=== PATIENT | male | born 1960 | race African-American/Black ===

== ENCOUNTER 2019-02-07 13:44 | Inpatient (IN) | payer OTHER ==
[2019-02-07 17:00] VITALS: BMI 33.2
--- NOTE | 2019-02-07 18:37 | HP ---
CIWA Score Nausea/Vomitin Muscle Tremors: 3 Anxiety: 3 Agitation: 0-Normal Activity Paroxysmal Sweats: 2 Orientation: 0-Oriented Tacttile Disturbances: 0-None Auditory Disturbances: 0-None Visual Disturbances: 0-None Headache: 0-None Present CIWA-Ar Total Score: 13 - Admission Criteria OASAS Guidelines: Admission for Medically Managed Detox: Requires at least one of the followin. CIWA greater than 12 2. Seizures within the past 24 hours 3. Delirium tremens within the past 24 hours 4. Hallucinations within the past 24 hours 5. Acute intervention needed for co occurring medical disorder 6. Acute intervention needed for co occurring psychiatric disorder 7. Severe withdrawal that cannot be handled at a lower level of care (continued vomiting, continued diarrhea, abnormal vital signs) requiring intravenous medication and/or fluids 8. Admission [facility] Chief Complaint: detox from cocaine and EtOH Allergies/Adverse Reactions: Allergies Allergy/AdvReac Type Severity Reaction Status Date / Time No Known Allergies Allergy Verified 02/07/19 16:45 History of Present Illness: 58M w/ pmh of CKD(s/p DDKT 2009 [facility]), HTN, IDDM, chronic lower back pain( oxycodone 15mg QID PRN) presenting for EtOH, cocaine detox. Cocaine $150-200, 2- 3x weekly for 1.5ys. Drinks 22oz beer x12 everyday, starts in the morning. Drinking regularly for ~1.5ys after losing job and injuring back. Last drink at ~1500. Gets tremors at 12pm. Blacked out 5-6x, last 1mo ago. Denies withdrawal seizures. Denies cirrhosis, jaundice, scleral icterus, hematemesis, hematachezia. Distant tobacco(~35yo). Compliant with transplant medications, Cr ~1.3. Sees chronic pain clinic for lower back pain. Plans to have L-spine surgery at [facility]. Lives alone. 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 - Ebola screening Have you traveled outside of the country in the last 21 days: No (N) Have you had contact with anyone from an Ebola affected area: No Do you have a fever: No - Review of Systems EENT: denies: Recent change in vision Respiratory: denies: Cough, Productive cough Cardiac: denies: Chest Pain, Palpitations GI: reports: Nausea. denies: Diarrhea, Vomiting : denies: Discharge, Pain, Urgency Musculoskeletal: reports: Back Pain (lower back pain) Neuro: reports: Headache, Other (numbness in feet) Patient History - Patient Medical History Hx Anemia: No Hx Asthma: No Hx Chronic Obstructive Pulmonary Disease (COPD): No Hx Cancer: No Hx Cardiac Disorders: No Hx Congestive Heart Failure: No Hx Hypertension: Yes Hx Hypercholesterolemia: No Hx Pacemaker: No HX Cerebrovascular Accident: No Hx Seizures: No Hx Dementia: No Hx Diabetes: Yes Hx Gastrointestinal Disorders: No Hx Liver Disease: No Hx Genitourinary Disorders: No Hx Sexually Transmitted Disorders: No Hx Renal Disease (ESRD): Yes (s/p DDKT(2009, [facility])) Hx Thyroid Disease: No Hx Human Immunodeficiency Virus (HIV): No Hx Hepatitis C: No Hx Depression: No Hx Suicide Attempt: No Hx Bipolar Disorder: No Hx Schizophrenia: No - Patient Surgical History Past Surgical History: Yes Hx Neurologic Surgery: No Hx Cataract Extraction: No Hx Cardiac Surgery: No Hx Lung Surgery: No Hx Abdominal Surgery: No Hx Appendectomy: No Hx Cholecystectomy: No Hx Genitourinary Surgery: No Hx Section: No Hx Orthopedic Surgery: No Other Surgical History: DDKT 2009 at [facility] - Smoking Cessation Smoking history: Never smoked Have you smoked in the past 12 months: No - Substance & Tx. History Hx Alcohol Use: Yes Hx Substance Use: Yes Substance Use Type: Alcohol, Heroin - Substances abused Alcohol Substance route: Oral Frequency: Daily Amount used: 12 CANS OF BEER (22 OUNCES) Age of first use: 14 Date of last use: 02/07/19 Cocaine Substance route: Smoking Frequency: 3-6 times per week Amount used: $200 Age of first use: 18 Date of last use: 02/06/19 Family Disease History - Family Disease History Other Family History: no HTN, DM, Ca Admission Physical Exam BHS - Vital Signs Vital Signs: Vital Signs - 24 hr 02/07/19 16:42 Temperature 97.3 F L Pulse Rate 69 Respiratory 20 Rate Blood Pressure 142/96 - Physical General Appearance: Yes: No Apparent Distress, Obese HEENTM: Yes: Pale Conjunctivae L. No: Pale Conjunctivae R, Scleral Ictenus R, Scleral Ictenus L, Thrush Respiratory: Yes: Chest Non-Tender, Lungs Clear, No Respiratory Distress, No Accessory Muscle Use. No: Wheezing Neck: No: Supple Cardiology: Yes: Regular Rate, S1, S2. No: Irregularly Irregular Abdominal: Yes: Non Tender, Soft. No: Distended Genitourinary: No: Frequency Back: Yes: Muscle Spasm Extremities: Yes: Other (RUE with incision scars). No: Non-Tender, Swelling Neurological: Yes: Fully Oriented, Alert Breathalyzer - Breathalyzer Breathalyzer: 0.018 Urine Drug Screen - Test Device Lot number: [id number] Expiration date: 10/26/20 - Control Is test valid?: Yes - Results Drug screen NEGATIVE: No Urine drug screen results: ADELSO-Cocaine, BZO-Benzodiazepines Inpatient Rehab Admission - Rehab Decision to Admit Inpatient rehab admission?: No
--- NOTE | 2019-02-07 18:56 | PN ---
Teaching Attending Note Name of Resident: Juan J Plaza ATTENDING PHYSICIAN STATEMENT I saw and evaluated the patient. I reviewed the resident's note and discussed the case with the resident. I agree with the resident's findings and plan as documented. SUBJECTIVE: 58 yo s/p kidney transplant about 9 years ago, here for alcohol use and cocaine use disorders. Pt states he relapsed to using alcohol in 04/2018. OBJECTIVE: Vital Signs - 24 hr 02/07/19 16:42 Temperature 97.3 F L Pulse Rate 69 Respiratory 20 Rate Blood Pressure 142/96 tremulous ASSESSMENT AND PLAN: AUD- librium detox protocol continue meds related to kidney transplant
[2019-02-07] MEDS ORDERED: MENTHOL/PHENOL 1 EACH UD MM PRN (19:26)
[2019-02-07] MEDS ORDERED: hydrOXYzine PAMOATE 25 MG CAPSULE (FP) PO PRN (19:26)
[2019-02-07] MEDS ORDERED: MAGNESIUM CITRATE 300 ML BOTTLE PO PRN (19:26)
[2019-02-07] MEDS ORDERED: ACETAMINOPHEN 325 MG TABLET (FP) PO PRN (19:26)
[2019-02-07] MEDS ORDERED: MAG HYDROX/AL HYDROX/SIMETH 30 ML UNIT-DOSE CUP PO PRN (19:26)
[2019-02-07] MEDS ORDERED: IBUPROFEN 400 MG TABLET (FP) PO PRN (19:26)
[2019-02-07] MEDS ORDERED: BISMUTH SUBSALICYLATE 524 MG/30 ML UD PO PRN (19:26)
[2019-02-07] MEDS ORDERED: chlordiazePOXIDE HCL 10 MG CAPSULE PO PRN (19:26)
[2019-02-07] MEDS: chlordiazePOXIDE HCL 25 MG CAPSULE PO SCH (20:46)
[2019-02-07] MEDS ORDERED: PATIENT'S OWN MEDICATION (NON-FORMULARY) (Gabapentin [Neurontin] 600 MG) PO SCH (22:00)
[2019-02-07] MEDS: GABAPENTIN 300 MG CAPSULE (FP) PO SCH (22:02)
[2019-02-07] MEDS: THIAMINE HCL 100 MG TABLET (FP) PO SCH (22:02)
[2019-02-07] MEDS: ACETAMINOPHEN 325 MG TABLET (FP) PO PRN (22:09)
[2019-02-07] MEDS ORDERED: INSULIN (LEVEMIR) 100 UNITS/ML UNITS SQ SCH (22:23)
[2019-02-07] MEDS ORDERED: INSULIN (LEVEMIR) 100 UNITS/ML UNITS SQ ONE (22:51)
[2019-02-07] MEDS: INSULIN (NOVOLOG) ASPART 100 UNITS/ML 10ML VIAL SQ SCH (23:03)
[2019-02-07] MEDS: TACROLIMUS ANHYDROUS 1 MG CAPSULE PO SCH (23:08)
[2019-02-07] MEDS: MYCOPHENOLATE MOFETIL 500 MG TABLET PO SCH (23:08)
[2019-02-08] MEDS: chlordiazePOXIDE HCL 25 MG CAPSULE PO SCH ×4 (05:51→22:02)
[2019-02-08] MEDS ORDERED: INSULIN SLIDING SCALE (NOVOLOG) 1 VIAL SQ ONE ×2 (08:26→16:51)
[2019-02-08] MEDS: INSULIN (NOVOLOG) ASPART 100 UNITS/ML 10ML VIAL SQ SCH ×3 (08:28→16:51)
[2019-02-08 10:00] LABS: ALBUMIN 3.6 g/dl (3.4-5.0); BILIRUBIN,TOTAL 0.6 mg/dL (0.2-1); BLOOD UREA NITROGEN 23.5 mg/dL (7-18); CALCIUM 9.3 mg/dL (8.5-10.1); CREATININE 1.7 mg/dL (0.55-1.3); POTASSIUM 4.5 mmol/L (3.5-5.1); TOT PROT 6.7 g/dl (6.4-8.2)
[2019-02-08] MEDS ORDERED: NIFEDIPINE 90 MG PO SCH (10:00)
[2019-02-08 10:02] LABS: HEMATOCRIT 41.8 % (35.4-49); MCH 31.5 pg (25.7-33.7); MCHC 33.4 g/dl (32.0-35.9); MEAN CELL VOLUME 94.3 fl (80-96); MEAN PLT VOLUME 9.1 fl (7.5-11.1); PLATELET COUNT 300 K/MM3 (134-434); RBC 4.43 M/mm3 (4.00-5.60); RDW 13.5 % (11.9-15.9); WHITE BLOOD COUNT 6.9 K/mm3 (4.0-10.0)
[2019-02-08] MEDS: ASPIRIN 81 MG CHEWABLE TABLETS PO SCH (10:04)
[2019-02-08] MEDS: GABAPENTIN 300 MG CAPSULE (FP) PO SCH ×2 (10:04→21:14)
[2019-02-08] MEDS: MYCOPHENOLATE MOFETIL 500 MG TABLET PO SCH ×2 (10:04→21:14)
[2019-02-08] MEDS: PRENATAL VITAMINS W/ FOLIC ACID TABLET (FP) PO SCH (10:05)
--- NOTE | 2019-02-08 10:38 | PN ---
S CIWA - CIWA Score Nausea/Vomitin Muscle Tremors: 2 Anxiety: 2 Agitation: 2 Paroxysmal Sweats: 1-Minimal Palms Moist Orientation: 0-Oriented Tacttile Disturbances: 1-Very Mild Itch/Numbness Auditory Disturbances: 0-None Visual Disturbances: 0-None Headache: 2-Mild CIWA-Ar Total Score: 12 BHS Progress Note (SOAP) Subjective: alert,irritable,anxious,interrupted sleep,tremor Objective: 02/08/19 10:36 Vital Signs Temperature 97.5 F L 02/08/19 09:18 Pulse Rate 83 02/08/19 09:18 Respiratory Rate 18 02/08/19 09:18 Blood Pressure 152/98 02/08/19 09:18 O2 Sat by Pulse Oximetry (%) 02/08/19 10:36 Laboratory Last Values WBC 6.9 K/mm3 (4.0-10.0) 02/08/19 08:00 RBC 4.43 M/mm3 (4.00-5.60) 02/08/19 08:00 Hgb 14.0 GM/dL (11.7-16.9) 02/08/19 08:00 Hct 41.8 % (35.4-49) 02/08/19 08:00 MCV 94.3 fl (80-96) 02/08/19 08:00 MCH 31.5 pg (25.7-33.7) 02/08/19 08:00 MCHC 33.4 g/dl (32.0-35.9) 02/08/19 08:00 RDW 13.5 % (11.9-15.9) 02/08/19 08:00 Plt Count 300 K/MM3 (134-434) 02/08/19 08:00 MPV 9.1 fl (7.5-11.1) 02/08/19 08:00 Sodium 137 mmol/L (136-145) 02/08/19 08:00 Potassium 4.5 mmol/L (3.5-5.1) 02/08/19 08:00 Chloride 102 mmol/L (98-107) 02/08/19 08:00 Carbon Dioxide 27 mmol/L (21-32) 02/08/19 08:00 Anion Gap 8 MMOL/L (8-16) 02/08/19 08:00 BUN 23.5 mg/dL (7-18) H 02/08/19 08:00 Creatinine 1.7 mg/dL (0.55-1.3) H 02/08/19 08:00 Est GFR (CKD-EPI)AfAm 50.40 02/08/19 08:00 Est GFR (CKD-EPI)NonAf 43.49 02/08/19 08:00 POC Glucometer 342 UNITS (80-120) 02/08/19 10:02 Random Glucose 311 mg/dL (74-106) H 02/08/19 08:00 Calcium 9.3 mg/dL (8.5-10.1) 02/08/19 08:00 Total Bilirubin 0.6 mg/dL (0.2-1) 02/08/19 08:00 AST 34 U/L (15-37) 02/08/19 08:00 ALT 54 U/L (13-61) 02/08/19 08:00 Alkaline Phosphatase 121 U/L (45-117) H 02/08/19 08:00 Total Protein 6.7 g/dl (6.4-8.2) 02/08/19 08:00 Albumin 3.6 g/dl (3.4-5.0) 02/08/19 08:00 Assessment: 02/08/19 10:37 withdrawal symptom Plan: continue detox,libium regimen,bgm monitoring with insulin coverage
--- NOTE | 2019-02-08 15:32 | EKG ---
Test Reason : Blood Pressure : / mmHG Vent. Rate : 064 BPM Atrial Rate : 064 BPM P-R Int : 168 ms QRS Dur : 100 ms QT Int : 436 ms P-R-T Axes : 051 -21 039 degrees QTc Int : 449 ms NORMAL SINUS RHYTHM POSSIBLE LEFT ATRIAL ENLARGEMENT LEFT VENTRICULAR HYPERTROPHY CANNOT RULE OUT SEPTAL INFARCT , AGE UNDETERMINED ABNORMAL ECG NO PREVIOUS ECGS AVAILABLE Confirmed by MICHEL DAVIS MD ([id number]) on 02/08/2019 3:31:21 PM Referred By: AYDE COLLAZO Confirmed By:MICHEL DAVIS MD
[2019-02-08] MEDS: TACROLIMUS ANHYDROUS 1 MG CAPSULE PO SCH ×2 (15:38→21:16)
[2019-02-08] MEDS: predniSONE 1 MG TABLET (FP) PO SCH (15:39)
[2019-02-08] MEDS: NIFEdipine E.R. 90 MG TABLET (FP) PO SCH (15:39)
[2019-02-08] MEDS: MELATONIN 5 MG TABLETS PO PRN (21:14)
[2019-02-08] MEDS: THIAMINE HCL 100 MG TABLET (FP) PO SCH (21:15)
[2019-02-08] MEDS: INSULIN (LEVEMIR) 100 UNITS/ML UNITS SQ SCH (21:41)
[2019-02-08] MEDS ORDERED: INSULIN (LEVEMIR) 100 UNITS/ML UNITS SQ SCH (22:00)
[2019-02-09] MEDS ORDERED: chlordiazePOXIDE 5 MG CAPSULE PO SCH (05:00)
[2019-02-09] MEDS: chlordiazePOXIDE HCL 25 MG CAPSULE PO SCH ×4 (05:43→22:09)
[2019-02-09] MEDS ORDERED: INSULIN SLIDING SCALE (NOVOLOG) 1 VIAL SQ ONE ×3 (08:15→16:48)
[2019-02-09] MEDS: INSULIN (NOVOLOG) ASPART 100 UNITS/ML 10ML VIAL SQ SCH ×3 (08:26→16:51)
[2019-02-09] MEDS: PRENATAL VITAMINS W/ FOLIC ACID TABLET (FP) PO SCH (10:32)
[2019-02-09] MEDS: GABAPENTIN 300 MG CAPSULE (FP) PO SCH ×2 (10:32→22:09)
[2019-02-09] MEDS: ASPIRIN 81 MG CHEWABLE TABLETS PO SCH (10:33)
[2019-02-09] MEDS: MYCOPHENOLATE MOFETIL 500 MG TABLET PO SCH ×2 (10:33→22:09)
[2019-02-09] MEDS: predniSONE 1 MG TABLET (FP) PO SCH (10:33)
[2019-02-09] MEDS: TACROLIMUS ANHYDROUS 1 MG CAPSULE PO SCH ×2 (10:35→22:11)
[2019-02-09] MEDS: METHOCARBAMOL 500 MG TABLET PO PRN ×2 (10:36→17:51)
[2019-02-09] MEDS ORDERED: INSULIN (NOVOLOG) ASPART 100 UNITS/ML 10ML VIAL SQ SCH (11:00)
[2019-02-09] MEDS: NIFEdipine E.R. 90 MG TABLET (FP) PO SCH (11:00)
[2019-02-09 11:40] LABS: BLOOD UREA NITROGEN 16.4 mg/dL (7-18); CALCIUM 10.2 mg/dL (8.5-10.1); CREATININE 1.7 mg/dL (0.55-1.3); POTASSIUM 4.3 mmol/L (3.5-5.1)
--- NOTE | 2019-02-09 12:23 | PN ---
S CIWA - CIWA Score Nausea/Vomitin-Mild Nausea/No Vomiting Muscle Tremors: 2 Anxiety: 2 Agitation: 2 Paroxysmal Sweats: No Perspiration Orientation: 0-Oriented Tacttile Disturbances: 0-None Auditory Disturbances: 0-None Visual Disturbances: 0-None Headache: 2-Mild CIWA-Ar Total Score: 9 S Progress Note (SOAP) Subjective: alert,irritable,anxious,interrupted sleep, Objective: 02/09/19 12:23 Vital Signs Temperature 97.0 F L 02/09/19 09:25 Pulse Rate 89 02/09/19 09:25 Respiratory Rate 18 02/09/19 09:25 Blood Pressure 137/92 02/09/19 09:25 O2 Sat by Pulse Oximetry (%) 02/09/19 12:24 Laboratory Last Values WBC 6.9 K/mm3 (4.0-10.0) 02/08/19 08:00 RBC 4.43 M/mm3 (4.00-5.60) 02/08/19 08:00 Hgb 14.0 GM/dL (11.7-16.9) 02/08/19 08:00 Hct 41.8 % (35.4-49) 02/08/19 08:00 MCV 94.3 fl (80-96) 02/08/19 08:00 MCH 31.5 pg (25.7-33.7) 02/08/19 08:00 MCHC 33.4 g/dl (32.0-35.9) 02/08/19 08:00 RDW 13.5 % (11.9-15.9) 02/08/19 08:00 Plt Count 300 K/MM3 (134-434) 02/08/19 08:00 MPV 9.1 fl (7.5-11.1) 02/08/19 08:00 Sodium 138 mmol/L (136-145) 02/09/19 10:16 Potassium 4.3 mmol/L (3.5-5.1) 02/09/19 10:16 Chloride 100 mmol/L (98-107) 02/09/19 10:16 Carbon Dioxide 31 mmol/L (21-32) 02/09/19 10:16 Anion Gap 7 MMOL/L (8-16) L 02/09/19 10:16 BUN 16.4 mg/dL (7-18) 02/09/19 10:16 Creatinine 1.7 mg/dL (0.55-1.3) H 02/09/19 10:16 Est GFR (CKD-EPI)AfAm 50.40 02/09/19 10:16 Est GFR (CKD-EPI)NonAf 43.49 02/09/19 10:16 POC Glucometer 431 UNITS (80-120) 02/09/19 11:38 Random Glucose 425 mg/dL (74-106) H* 02/09/19 10:16 Calcium 10.2 mg/dL (8.5-10.1) H 02/09/19 10:16 Total Bilirubin 0.6 mg/dL (0.2-1) 02/08/19 08:00 AST 34 U/L (15-37) 02/08/19 08:00 ALT 54 U/L (13-61) 02/08/19 08:00 Alkaline Phosphatase 121 U/L (45-117) H 02/08/19 08:00 Total Protein 6.7 g/dl (6.4-8.2) 02/08/19 08:00 Albumin 3.6 g/dl (3.4-5.0) 02/08/19 08:00 RPR Titer Nonreactive (NONREACTIVE) 02/08/19 08:00 repeat bgm pending Assessment: 02/09/19 12:25 withdrawal symptom Plan: continue detox,bgm monitoring,template worker consultation
[2019-02-09] MEDS: ACETAMINOPHEN 325 MG TABLET (FP) PO PRN (12:39)
[2019-02-09] MEDS ORDERED: INSULIN (LEVEMIR) 100 UNITS/ML UNITS SQ SCH (22:00)
[2019-02-09] MEDS: MELATONIN 5 MG TABLETS PO PRN (22:11)
[2019-02-09] MEDS: THIAMINE HCL 100 MG TABLET (FP) PO SCH (22:12)
[2019-02-09] MEDS: INSULIN (LEVEMIR) 100 UNITS/ML UNITS SQ SCH (22:13)
[2019-02-10] MEDS ORDERED: chlordiazePOXIDE HCL 10 MG CAPSULE PO PRN
[2019-02-10] MEDS ORDERED: chlordiazePOXIDE HCL 10 MG CAPSULE PO SCH (05:00)
[2019-02-10] MEDS: chlordiazePOXIDE HCL 25 MG CAPSULE PO SCH ×4 (05:40→22:04)
[2019-02-10] MEDS ORDERED: INSULIN SLIDING SCALE (NOVOLOG) 1 VIAL SQ ONE (06:40)
[2019-02-10] MEDS: INSULIN (NOVOLOG) ASPART 100 UNITS/ML 10ML VIAL SQ SCH ×3 (08:01→17:02)
[2019-02-10] MEDS: GABAPENTIN 300 MG CAPSULE (FP) PO SCH ×2 (09:38→22:03)
[2019-02-10] MEDS: ASPIRIN 81 MG CHEWABLE TABLETS PO SCH (09:39)
[2019-02-10] MEDS: MYCOPHENOLATE MOFETIL 500 MG TABLET PO SCH ×2 (09:40→22:03)
[2019-02-10] MEDS: predniSONE 1 MG TABLET (FP) PO SCH (09:40)
[2019-02-10] MEDS: PRENATAL VITAMINS W/ FOLIC ACID TABLET (FP) PO SCH (09:40)
[2019-02-10] MEDS: NIFEdipine E.R. 90 MG TABLET (FP) PO SCH (09:41)
[2019-02-10] MEDS: TACROLIMUS ANHYDROUS 1 MG CAPSULE PO SCH ×2 (09:41→22:04)
--- NOTE | 2019-02-10 10:56 | PN ---
S CIWA - CIWA Score Nausea/Vomitin-No Nausea/No Vomiting Muscle Tremors: 2 Anxiety: 2 Agitation: 0-Normal Activity Paroxysmal Sweats: 3 Orientation: 0-Oriented Tacttile Disturbances: 0-None Auditory Disturbances: 0-None Visual Disturbances: 0-None Headache: 1-Very Mild CIWA-Ar Total Score: 8 S Progress Note (SOAP) Subjective: c/o headache, anxiety, shakes, and sweats. Objective: 02/10/19 10:54 Vital Signs 02/10/19 02/10/19 02/10/19 03:30 07:08 09:14 Temperature 97.3 F L 97.3 F L Pulse Rate 87 92 H Respiratory 18 20 16 Rate Blood Pressure 134/90 152/88 Lab Results WBC 6.9 K/mm3 (4.0-10.0) 02/08/19 08:00 RBC 4.43 M/mm3 (4.00-5.60) 02/08/19 08:00 Hgb 14.0 GM/dL (11.7-16.9) 02/08/19 08:00 Hct 41.8 % (35.4-49) 02/08/19 08:00 MCV 94.3 fl (80-96) 02/08/19 08:00 MCHC 33.4 g/dl (32.0-35.9) 02/08/19 08:00 RDW 13.5 % (11.9-15.9) 02/08/19 08:00 Plt Count 300 K/MM3 (134-434) 02/08/19 08:00 Sodium 138 mmol/L (136-145) 02/09/19 10:16 Potassium 4.3 mmol/L (3.5-5.1) 02/09/19 10:16 Chloride 100 mmol/L (98-107) 02/09/19 10:16 Carbon Dioxide 31 mmol/L (21-32) 02/09/19 10:16 Anion Gap 7 MMOL/L (8-16) L 02/09/19 10:16 BUN 16.4 mg/dL (7-18) 02/09/19 10:16 Creatinine 1.7 mg/dL (0.55-1.3) H 02/09/19 10:16 Random Glucose 425 mg/dL (74-106) H* 02/09/19 10:16 Calcium 10.2 mg/dL (8.5-10.1) H 02/09/19 10:16 Labs noted. Assessment: 02/10/19 10:54 AOX3, in no acute respiratory distress. Full ROM, ambulating in the unit. Withdrawal symptoms. Plan: continue detox. increase fluids.
--- NOTE | 2019-02-10 11:45 | CONSULT ---
[facility] Psychiatric Consult - Data Date of interview: 02/10/19 Admission source: [facility] Identifying data: First admission to [facility] for this 58 y/o AA male self- referred for detoxification (alcohol, opioid, cocaine). Seen at [address] [place] [address]. Patient is single, father of two, domiciled, unemployed and supported on [employer] benefits. Substance Abuse History: Discussed with the patient. Details correlate with content of [facility] report as follows : Smoking history: Never smoked. Have you smoked in the past 12 months: No. Substance & Tx. History. Hx Alcohol Use: Yes. Hx Substance Use: Yes. Substance Use Type: Alcohol, Heroin. - Substances abused. Alcohol. Substance route: Oral. Frequency: Daily. Amount used: 12 CANS OF BEER (22 OUNCES). Age of first use: 14. Date of last use: 02/07/19. Cocaine. Substance route: Smoking. Frequency: 3-6 times per week. Amount used: $200. Age of first use: 18. Date of last use: 02/06/19 Medical History: History of kidney transplant (2009), diabetes mellitus, obesity and hypertension. Psychiatric History: Patient denies history of psychiatric hospitalizations, suicide attempts or psychiatric OPD care. Physical/Sexual Abuse/Trauma History: No reported history of abuse. Additional Comment: Urine drug screen results: ADELSO-Cocaine, BZO- Benzodiazepines. Noted. Mental Status Exam - Mental Status Exam Alert and Oriented to: Time, Place, Person Cognitive Function: Good Patient Appearance: Well Groomed (obese) Mood: Withdrawn, Anxious (mildly) Affect: Appropriate, Normal Range Patient Behavior: Fatigued, Appropriate, Cooperative Speech Pattern: Clear Voice Loudness: Normal Thought Process: Intact, Goal Oriented Thought Disorder: Not Present Hallucinations: Denies Suicidal Ideation: Denies Homicidal Ideation: Denies Insight/Judgement: Fair Sleep: Poorly, Difficulty falling asleep Appetite: Good Muscle strength/Tone: Normal Gait/Station: Normal Psychiatric Findings - Problem List (Welcome 1, 2,3) (1) Alcohol use disorder Current Visit: Yes Status: Chronic (2) Opioid use disorder Current Visit: Yes Status: Chronic (3) Cocaine use disorder Current Visit: Yes Status: Chronic (4) Substance induced mood disorder Current Visit: Yes Status: Suspected (5) Insomnia Current Visit: Yes Status: Chronic - Initial Treatment Plan Initial Treatment Plan: Psychoeducation. Sleep hygiene. AA/NA meetings. Detoxification. Harm reduction. Relapse prevention discussed with the patient. Insomnia is addressed with mirtazapine 7.5 mg po hs. Side effects/benefits discussed with the patient. Mr Ernandez is in agreement with this plan of care. Observation.
[2019-02-10] MEDS: METHOCARBAMOL 500 MG TABLET PO PRN ×2 (12:00→19:42)
[2019-02-10] MEDS: chlordiazePOXIDE HCL 25 MG CAPSULE PO PRN ×2 (12:00→19:42)
[2019-02-10] MEDS: MIRTAZAPINE 15 MG TABLET (FP) PO SCH (22:03)
[2019-02-10] MEDS: THIAMINE HCL 100 MG TABLET (FP) PO SCH (22:03)
[2019-02-10] MEDS: INSULIN (LEVEMIR) 100 UNITS/ML UNITS SQ SCH (22:04)
[2019-02-10] MEDS: MELATONIN 5 MG TABLETS PO PRN (22:05)
[2019-02-11] MEDS ORDERED: chlordiazePOXIDE HCL 10 MG CAPSULE PO PRN
[2019-02-11] MEDS ORDERED: chlordiazePOXIDE HCL 10 MG CAPSULE PO ONE (05:00)
[2019-02-11] MEDS: METHOCARBAMOL 500 MG TABLET PO PRN ×2 (06:17→19:55)
[2019-02-11] MEDS: chlordiazePOXIDE HCL 10 MG CAPSULE PO SCH ×4 (06:17→22:09)
[2019-02-11] MEDS: INSULIN (NOVOLOG) ASPART 100 UNITS/ML 10ML VIAL SQ SCH ×3 (08:24→17:40)
[2019-02-11] MEDS: predniSONE 1 MG TABLET (FP) PO SCH (10:09)
[2019-02-11] MEDS: NIFEdipine E.R. 90 MG TABLET (FP) PO SCH (10:09)
[2019-02-11] MEDS: MYCOPHENOLATE MOFETIL 500 MG TABLET PO SCH ×2 (10:09→22:09)
[2019-02-11] MEDS: ONDANSETRON *ODT* 4 MG TABLET SL PRN (10:09)
[2019-02-11] MEDS: TACROLIMUS ANHYDROUS 1 MG CAPSULE PO SCH ×2 (10:10→22:10)
[2019-02-11] MEDS: ASPIRIN 81 MG CHEWABLE TABLETS PO SCH (10:10)
[2019-02-11] MEDS: GABAPENTIN 300 MG CAPSULE (FP) PO SCH ×2 (10:10→22:09)
[2019-02-11] MEDS: PRENATAL VITAMINS W/ FOLIC ACID TABLET (FP) PO SCH (10:10)
--- NOTE | 2019-02-11 10:57 | PN ---
S CIWA - CIWA Score Nausea/Vomitin Muscle Tremors: 1-None Visible, but [place] Anxiety: 3 Agitation: 1-Slight > Activity Paroxysmal Sweats: No Perspiration Orientation: 0-Oriented Tacttile Disturbances: 0-None Auditory Disturbances: 0-None Visual Disturbances: 0-None Headache: 2-Mild CIWA-Ar Total Score: 9 BHS Progress Note (SOAP) Subjective: Patient c/o nausea, no vomiting, anxiety and shakes. Objective: 02/11/19 10:53 Vital Signs Temperature 97.5 F L 02/11/19 09:31 Pulse Rate 89 02/11/19 09:31 Respiratory Rate 16 02/11/19 09:31 Blood Pressure 152/82 02/11/19 09:31 O2 Sat by Pulse Oximetry (%) Laboratory Tests 02/07/19 02/07/19 02/08/19 19:51 21:55 05:56 WBC RBC Hgb Hct MCV MCH MCHC RDW Plt Count MPV Sodium Potassium Chloride Carbon Dioxide Anion Gap BUN Creatinine Est GFR (CKD-EPI)AfAm Est GFR (CKD-EPI)NonAf POC Glucometer 135 238 209 Random Glucose Calcium Total Bilirubin AST ALT Alkaline Phosphatase Total Protein Albumin RPR Titer TB (QFT) Incubation TB Test (QFT) Nil TB Test (QFT) Mitogen TB Test (QFT) Antigen TB Test (QFT) TB Positive Criteria 02/08/19 02/08/19 02/08/19 08:00 08:00 08:00 WBC 6.9 RBC 4.43 Hgb 14.0 Hct 41.8 MCV 94.3 MCH 31.5 MCHC 33.4 RDW 13.5 Plt Count 300 MPV 9.1 Sodium 137 Potassium 4.5 Chloride 102 Carbon Dioxide 27 Anion Gap 8 BUN 23.5 H Creatinine 1.7 H Est GFR (CKD-EPI)AfAm 50.40 Est GFR (CKD-EPI)NonAf 43.49 POC Glucometer Random Glucose 311 H Calcium 9.3 Total Bilirubin 0.6 AST 34 ALT 54 Alkaline Phosphatase 121 H Total Protein 6.7 Albumin 3.6 RPR Titer Nonreactive TB (QFT) Incubation TB Test (QFT) Nil TB Test (QFT) Mitogen TB Test (QFT) Antigen TB Test (QFT) TB Positive Criteria 02/08/19 02/08/19 02/08/19 08:00 10:02 16:45 WBC RBC Hgb Hct MCV MCH MCHC RDW Plt Count MPV Sodium Potassium Chloride Carbon Dioxide Anion Gap BUN Creatinine Est GFR (CKD-EPI)AfAm Est GFR (CKD-EPI)NonAf POC Glucometer 342 331 Random Glucose Calcium Total Bilirubin AST ALT Alkaline Phosphatase Total Protein Albumin RPR Titer TB (QFT) Incubation TB Test (QFT) Nil 0.03 TB Test (QFT) Mitogen >10.00 TB Test (QFT) Antigen 0.04 TB Test (QFT) Negative TB Positive Criteria 02/08/19 02/09/19 02/09/19 20:34 05:42 10:16 WBC RBC Hgb Hct MCV MCH MCHC RDW Plt Count MPV Sodium 138 Potassium 4.3 Chloride 100 Carbon Dioxide 31 Anion Gap 7 L BUN 16.4 Creatinine 1.7 H Est GFR (CKD-EPI)AfAm 50.40 Est GFR (CKD-EPI)NonAf 43.49 POC Glucometer 441 382 Random Glucose 425 H* Calcium 10.2 H Total Bilirubin AST ALT Alkaline Phosphatase Total Protein Albumin RPR Titer TB (QFT) Incubation TB Test (QFT) Nil TB Test (QFT) Mitogen TB Test (QFT) Antigen TB Test (QFT) TB Positive Criteria 02/09/19 02/09/19 02/09/19 11:38 16:21 22:06 WBC RBC Hgb Hct MCV MCH MCHC RDW Plt Count MPV Sodium Potassium Chloride Carbon Dioxide Anion Gap BUN Creatinine Est GFR (CKD-EPI)AfAm Est GFR (CKD-EPI)NonAf POC Glucometer 431 380 474 Random Glucose Calcium Total Bilirubin AST ALT Alkaline Phosphatase Total Protein Albumin RPR Titer TB (QFT) Incubation TB Test (QFT) Nil TB Test (QFT) Mitogen TB Test (QFT) Antigen TB Test (QFT) TB Positive Criteria 02/10/19 02/10/19 02/10/19 05:41 09:32 16:23 WBC RBC Hgb Hct MCV MCH MCHC RDW Plt Count MPV Sodium Potassium Chloride Carbon Dioxide Anion Gap BUN Creatinine Est GFR (CKD-EPI)AfAm Est GFR (CKD-EPI)NonAf POC Glucometer 352 511 399 Random Glucose Calcium Total Bilirubin AST ALT Alkaline Phosphatase Total Protein Albumin RPR Titer TB (QFT) Incubation TB Test (QFT) Nil TB Test (QFT) Mitogen TB Test (QFT) Antigen TB Test (QFT) TB Positive Criteria 02/10/19 02/11/19 02/11/19 21:34 06:12 10:07 WBC RBC Hgb Hct MCV MCH MCHC RDW Plt Count MPV Sodium Potassium Chloride Carbon Dioxide Anion Gap BUN Creatinine Est GFR (CKD-EPI)AfAm Est GFR (CKD-EPI)NonAf POC Glucometer 465 396 451 Random Glucose Calcium Total Bilirubin AST ALT Alkaline Phosphatase Total Protein Albumin RPR Titer TB (QFT) Incubation TB Test (QFT) Nil TB Test (QFT) Mitogen TB Test (QFT) Antigen TB Test (QFT) TB Positive Criteria PE: alert and oriented x 3 skin warm and dry +perrla, eoms intact bl car s1s2 resp cta bl ext full rom, no edema mild tremors felt, amb ad anuradha anxious Assessment: 02/11/19 10:56 ETOH withdrawal syndrome anxiety dm/hyperglycemia Plan: continue detox will adjust novolog to 17 units tid due to elevated blood sugars zofran prn encourage fluids psych consult monitor clinically
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
[2019-02-11] MEDS: hydrOXYzine PAMOATE 25 MG CAPSULE (FP) PO PRN ×2 (14:41→20:50)
[2019-02-11] MEDS: INSULIN (LEVEMIR) 100 UNITS/ML UNITS SQ SCH (22:09)
[2019-02-11] MEDS: THIAMINE HCL 100 MG TABLET (FP) PO SCH (22:09)
[2019-02-11] MEDS: MIRTAZAPINE 15 MG TABLET (FP) PO SCH (22:10)
[2019-02-12] MEDS: chlordiazePOXIDE HCL 10 MG CAPSULE PO SCH ×2 (05:56→16:28)
[2019-02-12] MEDS: ONDANSETRON *ODT* 4 MG TABLET SL PRN ×2 (06:00→12:28)
[2019-02-12] MEDS: hydrOXYzine PAMOATE 25 MG CAPSULE (FP) PO PRN ×3 (06:00→20:03)
[2019-02-12] MEDS: INSULIN (NOVOLOG) ASPART 100 UNITS/ML 10ML VIAL SQ SCH ×4 (07:30→16:29)
--- NOTE | 2019-02-12 09:48 | PN ---
S CIWA - CIWA Score Nausea/Vomitin-Mild Nausea/No Vomiting Muscle Tremors: 1-None Visible, but [place] Anxiety: 2 Agitation: 2 Paroxysmal Sweats: No Perspiration Orientation: 0-Oriented Tacttile Disturbances: 0-None Auditory Disturbances: 0-None Visual Disturbances: 0-None Headache: 1-Very Mild CIWA-Ar Total Score: 7 S Progress Note (SOAP) Subjective: alert,irritable,anxious,interrupted sleep, Objective: 02/12/19 09:47 Vital Signs Temperature 96.1 F L 02/12/19 06:00 Pulse Rate 91 H 02/12/19 06:00 Respiratory Rate 18 02/12/19 06:00 Blood Pressure 142/92 02/12/19 06:00 O2 Sat by Pulse Oximetry (%) 02/12/19 09:47 bgm [id number] Assessment: 02/12/19 09:47 withdrawal symptom Plan: continue detox librium regimen,bgm monitoring with insulin coverage
[2019-02-12] MEDS: NIFEdipine E.R. 90 MG TABLET (FP) PO SCH (09:59)
[2019-02-12] MEDS: predniSONE 1 MG TABLET (FP) PO SCH (09:59)
[2019-02-12] MEDS: ASPIRIN 81 MG CHEWABLE TABLETS PO SCH (09:59)
[2019-02-12] MEDS: MYCOPHENOLATE MOFETIL 500 MG TABLET PO SCH ×2 (10:00→21:49)
[2019-02-12] MEDS: GABAPENTIN 300 MG CAPSULE (FP) PO SCH ×2 (10:00→21:49)
[2019-02-12] MEDS: PRENATAL VITAMINS W/ FOLIC ACID TABLET (FP) PO SCH (10:00)
[2019-02-12] MEDS: TACROLIMUS ANHYDROUS 1 MG CAPSULE PO SCH ×2 (10:01→21:49)
[2019-02-12] MEDS: METHOCARBAMOL 500 MG TABLET PO PRN ×2 (10:04→16:11)
[2019-02-12] MEDS: ACETAMINOPHEN 325 MG TABLET (FP) PO PRN (15:58)
[2019-02-12] MEDS ORDERED: INSULIN SLIDING SCALE (NOVOLOG) 1 VIAL SQ ONE ×2 (16:23→21:55)
[2019-02-12] MEDS ORDERED: INSULIN (NOVOLOG) ASPART 100 UNITS/ML 10ML VIAL SQ ONE (21:47)
[2019-02-12] MEDS: INSULIN (LEVEMIR) 100 UNITS/ML UNITS SQ SCH (21:48)
[2019-02-12] MEDS: THIAMINE HCL 100 MG TABLET (FP) PO SCH (21:49)
[2019-02-12] MEDS: MIRTAZAPINE 15 MG TABLET (FP) PO SCH (21:49)
[2019-02-13] MEDS ORDERED: chlordiazePOXIDE HCL 10 MG CAPSULE PO ONE (05:00)
[2019-02-13] MEDS: ACETAMINOPHEN 325 MG TABLET (FP) PO PRN ×3 (05:59→21:58)
[2019-02-13] MEDS: METHOCARBAMOL 500 MG TABLET PO PRN ×2 (06:00→15:22)
[2019-02-13] MEDS: INSULIN (NOVOLOG) ASPART 100 UNITS/ML 10ML VIAL SQ SCH ×3 (07:40→16:56)
--- NOTE | 2019-02-13 08:35 | DS ---
[facility] Detox Discharge Summary Admission Date: 02/07/19 Discharge Date: 02/13/19 - History Present History: Alcohol Dependence, Opioid Dependence, Pcp Dependence - Physical Exam Results Vital Signs: Vital Signs Temperature 96.3 F L 02/13/19 06:00 Pulse Rate 84 02/13/19 06:00 Respiratory Rate 20 02/13/19 06:00 Blood Pressure 141/91 02/13/19 06:00 O2 Sat by Pulse Oximetry (%) Pertinent Admission Physical Exam Findings: pt arrived in withdrawals Laboratory Tests 02/07/19 02/07/19 02/08/19 19:51 21:55 05:56 WBC RBC Hgb Hct MCV MCH MCHC RDW Plt Count MPV Sodium Potassium Chloride Carbon Dioxide Anion Gap BUN Creatinine Est GFR (CKD-EPI)AfAm Est GFR (CKD-EPI)NonAf POC Glucometer [phone] Random Glucose Calcium Total Bilirubin AST ALT Alkaline Phosphatase Total Protein Albumin RPR Titer TB (QFT) Incubation TB Test (QFT) Nil TB Test (QFT) Mitogen TB Test (QFT) Antigen TB Test (QFT) TB Positive Criteria 02/08/19 02/08/19 02/08/19 08:00 08:00 08:00 WBC 6.9 RBC 4.43 Hgb 14.0 Hct 41.8 MCV 94.3 MCH 31.5 MCHC 33.4 RDW 13.5 Plt Count 300 MPV 9.1 Sodium 137 Potassium 4.5 Chloride 102 Carbon Dioxide 27 Anion Gap 8 BUN 23.5 H Creatinine 1.7 H Est GFR (CKD-EPI)AfAm 50.40 Est GFR (CKD-EPI)NonAf 43.49 POC Glucometer Random Glucose 311 H Calcium 9.3 Total Bilirubin 0.6 AST 34 ALT 54 Alkaline Phosphatase 121 H Total Protein 6.7 Albumin 3.6 RPR Titer Nonreactive TB (QFT) Incubation TB Test (QFT) Nil TB Test (QFT) Mitogen TB Test (QFT) Antigen TB Test (QFT) TB Positive Criteria 02/08/19 02/08/19 02/08/19 08:00 10:02 16:45 WBC RBC Hgb Hct MCV MCH MCHC RDW Plt Count MPV Sodium Potassium Chloride Carbon Dioxide Anion Gap BUN Creatinine Est GFR (CKD-EPI)AfAm Est GFR (CKD-EPI)NonAf POC Glucometer 342 331 Random Glucose Calcium Total Bilirubin AST ALT Alkaline Phosphatase Total Protein Albumin RPR Titer TB (QFT) Incubation TB Test (QFT) Nil 0.03 TB Test (QFT) Mitogen >10.00 TB Test (QFT) Antigen 0.04 TB Test (QFT) Negative TB Positive Criteria 02/08/19 02/09/19 02/09/19 20:34 05:42 10:16 WBC RBC Hgb Hct MCV MCH MCHC RDW Plt Count MPV Sodium 138 Potassium 4.3 Chloride 100 Carbon Dioxide 31 Anion Gap 7 L BUN 16.4 Creatinine 1.7 H Est GFR (CKD-EPI)AfAm 50.40 Est GFR (CKD-EPI)NonAf 43.49 POC Glucometer 441 382 Random Glucose 425 H* Calcium 10.2 H Total Bilirubin AST ALT Alkaline Phosphatase Total Protein Albumin RPR Titer TB (QFT) Incubation TB Test (QFT) Nil TB Test (QFT) Mitogen TB Test (QFT) Antigen TB Test (QFT) TB Positive Criteria 02/09/19 02/09/19 02/09/19 11:38 16:21 22:06 WBC RBC Hgb Hct MCV MCH MCHC RDW Plt Count MPV Sodium Potassium Chloride Carbon Dioxide Anion Gap BUN Creatinine Est GFR (CKD-EPI)AfAm Est GFR (CKD-EPI)NonAf POC Glucometer [phone] Random Glucose Calcium Total Bilirubin AST ALT Alkaline Phosphatase Total Protein Albumin RPR Titer TB (QFT) Incubation TB Test (QFT) Nil TB Test (QFT) Mitogen TB Test (QFT) Antigen TB Test (QFT) TB Positive Criteria 02/10/19 02/10/19 02/10/19 05:41 09:32 16:23 WBC RBC Hgb Hct MCV MCH MCHC RDW Plt Count MPV Sodium Potassium Chloride Carbon Dioxide Anion Gap BUN Creatinine Est GFR (CKD-EPI)AfAm Est GFR (CKD-EPI)NonAf POC Glucometer [phone] Random Glucose Calcium Total Bilirubin AST ALT Alkaline Phosphatase Total Protein Albumin RPR Titer TB (QFT) Incubation TB Test (QFT) Nil TB Test (QFT) Mitogen TB Test (QFT) Antigen TB Test (QFT) TB Positive Criteria 02/10/19 02/11/19 02/11/19 21:34 06:12 10:07 WBC RBC Hgb Hct MCV MCH MCHC RDW Plt Count MPV Sodium Potassium Chloride Carbon Dioxide Anion Gap BUN Creatinine Est GFR (CKD-EPI)AfAm Est GFR (CKD-EPI)NonAf POC Glucometer [phone] Random Glucose Calcium Total Bilirubin AST ALT Alkaline Phosphatase Total Protein Albumin RPR Titer TB (QFT) Incubation TB Test (QFT) Nil TB Test (QFT) Mitogen TB Test (QFT) Antigen TB Test (QFT) TB Positive Criteria 02/11/19 02/11/19 02/12/19 16:40 21:58 05:53 WBC RBC Hgb Hct MCV MCH MCHC RDW Plt Count MPV Sodium Potassium Chloride Carbon Dioxide Anion Gap BUN Creatinine Est GFR (CKD-EPI)AfAm Est GFR (CKD-EPI)NonAf POC Glucometer [phone] Random Glucose Calcium Total Bilirubin AST ALT Alkaline Phosphatase Total Protein Albumin RPR Titer TB (QFT) Incubation TB Test (QFT) Nil TB Test (QFT) Mitogen TB Test (QFT) Antigen TB Test (QFT) TB Positive Criteria 02/12/19 02/12/19 02/12/19 11:17 16:14 21:42 WBC RBC Hgb Hct MCV MCH MCHC RDW Plt Count MPV Sodium Potassium Chloride Carbon Dioxide Anion Gap BUN Creatinine Est GFR (CKD-EPI)AfAm Est GFR (CKD-EPI)NonAf POC Glucometer [phone] Random Glucose Calcium Total Bilirubin AST ALT Alkaline Phosphatase Total Protein Albumin RPR Titer TB (QFT) Incubation TB Test (QFT) Nil TB Test (QFT) Mitogen TB Test (QFT) Antigen TB Test (QFT) TB Positive Criteria 02/13/19 05:04 WBC RBC Hgb Hct MCV MCH MCHC RDW Plt Count MPV Sodium Potassium Chloride Carbon Dioxide Anion Gap BUN Creatinine Est GFR (CKD-EPI)AfAm Est GFR (CKD-EPI)NonAf POC Glucometer 345 Random Glucose Calcium Total Bilirubin AST ALT Alkaline Phosphatase Total Protein Albumin RPR Titer TB (QFT) Incubation TB Test (QFT) Nil TB Test (QFT) Mitogen TB Test (QFT) Antigen TB Test (QFT) TB Positive Criteria today pt is aaox3 ambulating no s/s of withdrawals - Treatment Hospital Course: Detox Protocol Followed, Detoxed Safely, Responded well, Discharged Condition Good, Rehab Referral Accepted Patient has Accepted a Rehab Referral to: pt referred to inpatient rehab - Medication Discharge Medications: Ambulatory Orders Aspirin 81 mg PO DAILY 02/07/19 Gabapentin [Neurontin] 600 mg PO BID 02/07/19 Insulin (LOG) Aspart [NovoLOG -] 20 units SQ TID 02/07/19 Insulin Glargine,Hum.rec.anlog [Lantus Solostar PEN (NF)] 36 units SQ HS Mycophenolate Mofetil 500 mg PO BID 02/07/19 Nifedipine [Nifedipine ER] 90 mg PO DAILY 02/07/19 Sitagliptin Phosphate [Januvia -] 100 mg PO DAILY 02/07/19 Tacrolimus 4 mg PO BID 02/07/19 Zolpidem Tartrate [Ambien] 10 mg PO HS 02/07/19 predniSONE [Deltasone -] 4 mg PO DAILY 02/07/19 - Diagnosis (1) Substance-induced anxiety disorder Current Visit: Yes Status: Acute (2) Alcohol use disorder Current Visit: Yes Status: Chronic (3) Cocaine use disorder Current Visit: Yes Status: Chronic (4) Insomnia Current Visit: Yes Status: Chronic (5) Opioid use disorder Current Visit: Yes Status: Chronic (6) Substance induced mood disorder Current Visit: Yes Status: Suspected - AMA Did Patient Leave Against Medical Advice: No
[2019-02-13] MEDS: predniSONE 1 MG TABLET (FP) PO SCH (09:29)
[2019-02-13] MEDS: PRENATAL VITAMINS W/ FOLIC ACID TABLET (FP) PO SCH (09:29)
[2019-02-13] MEDS: NIFEdipine E.R. 90 MG TABLET (FP) PO SCH (09:29)
[2019-02-13] MEDS: MYCOPHENOLATE MOFETIL 500 MG TABLET PO SCH ×2 (09:29→21:11)
[2019-02-13] MEDS: TACROLIMUS ANHYDROUS 1 MG CAPSULE PO SCH ×2 (09:30→21:11)
[2019-02-13] MEDS: GABAPENTIN 300 MG CAPSULE (FP) PO SCH ×2 (09:32→21:10)
[2019-02-13] MEDS: ASPIRIN 81 MG CHEWABLE TABLETS PO SCH (09:32)
[2019-02-13] MEDS: hydrOXYzine PAMOATE 25 MG CAPSULE (FP) PO PRN (10:09)
[2019-02-13] MEDS ORDERED: INSULIN SLIDING SCALE (NOVOLOG) 1 VIAL SQ ONE (11:58)
--- NOTE | 2019-02-13 12:03 | PN ---
[facility] Progress Note Note: Patient reports feeling anxious and sleeping poorly despite taking Remeron 7.5 mg/hs and Vistaril 50 mg/q6hrs prn. Discussed about increasing Remeron dosage to 15 mg/hs and to change Vistatil to 50 mg po Q 4hrs prn. Patient agreed with plan
--- NOTE | 2019-02-13 14:45 | HP ---
[facility] Rehab Assess/Revision - Admission History Admitted to Rehab from: [facility] - Vital signs Vital Signs: Vital Signs Period Temp Pulse Resp BP Sys/Goodman Pulse Ox Last 24 Hr 96.3 F-97.2 F 78-95 18-20 141-149/87-96 - Findings Detox History & Physical reviewed: Yes Concur with findings: Yes Inpatient Rehab Admission - Rehab Decision to Admit Inpatient rehab admission?: Yes - Initial Determination Are CD services needed?: Yes Free of communicable disease: Yes Not in need of hospitalization: Yes - Rehab Admission Criteria Previous failed treatment: Yes Poor recovery environment: Yes Comorbidities: Yes Lacks judgement: Yes Patient is meeting Inpatient Rehab admission criteria:: Yes
[2019-02-13] MEDS: hydrOXYzine PAMOATE 50 MG CAPSULE (FP) PO PRN (15:22)
[2019-02-13] MEDS: INSULIN (LEVEMIR) 100 UNITS/ML UNITS SQ SCH (21:06)
[2019-02-13] MEDS: MIRTAZAPINE 30 MG TABLET (FP) PO SCH (21:10)
[2019-02-13] MEDS: MELATONIN 5 MG TABLETS PO PRN (21:12)
[2019-02-13] MEDS: THIAMINE HCL 100 MG TABLET (FP) PO SCH (21:12)
[2019-02-14] MEDS: hydrOXYzine PAMOATE 50 MG CAPSULE (FP) PO PRN ×4 (06:27→19:42)
[2019-02-14] MEDS ORDERED: INSULIN (NOVOLOG) ASPART 100 UNITS/ML 10ML VIAL ONE (07:11)
[2019-02-14] MEDS: ACETAMINOPHEN 325 MG TABLET (FP) PO PRN ×2 (07:18→12:33)
[2019-02-14] MEDS: INSULIN (NOVOLOG) ASPART 100 UNITS/ML 10ML VIAL SQ SCH ×3 (07:53→16:47)
[2019-02-14] MEDS: ASPIRIN 81 MG CHEWABLE TABLETS PO SCH (10:56)
[2019-02-14] MEDS: PRENATAL VITAMINS W/ FOLIC ACID TABLET (FP) PO SCH (10:56)
[2019-02-14] MEDS: GABAPENTIN 300 MG CAPSULE (FP) PO SCH ×2 (10:56→22:06)
[2019-02-14] MEDS: TACROLIMUS ANHYDROUS 1 MG CAPSULE PO SCH ×2 (10:57→22:07)
[2019-02-14] MEDS: predniSONE 1 MG TABLET (FP) PO SCH (10:57)
[2019-02-14] MEDS: MYCOPHENOLATE MOFETIL 500 MG TABLET PO SCH ×2 (10:57→22:11)
[2019-02-14] MEDS: NIFEdipine E.R. 90 MG TABLET (FP) PO SCH (10:57)
--- NOTE | 2019-02-14 13:25 | PN ---
S Progress Note (SOAP) Subjective: pt c/o severe tooth ache and muscle spasms. Also Wants to continue Robaxin post detox. Objective: 02/14/19 13:25 Vital Signs - 24 hr 02/13/19 02/14/19 02/14/19 15:42 00:30 03:30 Temperature 98.6 F Pulse Rate 94 H Respiratory 20 18 18 Rate Blood Pressure 137/90 02/14/19 07:23 Temperature 97.6 F Pulse Rate 76 Respiratory 18 Rate Blood Pressure 141/93 Laboratory Tests 02/07/19 02/07/19 02/08/19 19:51 21:55 05:56 WBC RBC Hgb Hct MCV MCH MCHC RDW Plt Count MPV Sodium Potassium Chloride Carbon Dioxide Anion Gap BUN Creatinine Est GFR (CKD-EPI)AfAm Est GFR (CKD-EPI)NonAf POC Glucometer [phone] Random Glucose Calcium Total Bilirubin AST ALT Alkaline Phosphatase Total Protein Albumin RPR Titer TB (QFT) Incubation TB Test (QFT) Nil TB Test (QFT) Mitogen TB Test (QFT) Antigen TB Test (QFT) TB Positive Criteria 02/08/19 02/08/19 02/08/19 08:00 08:00 08:00 WBC 6.9 RBC 4.43 Hgb 14.0 Hct 41.8 MCV 94.3 MCH 31.5 MCHC 33.4 RDW 13.5 Plt Count 300 MPV 9.1 Sodium 137 Potassium 4.5 Chloride 102 Carbon Dioxide 27 Anion Gap 8 BUN 23.5 H Creatinine 1.7 H Est GFR (CKD-EPI)AfAm 50.40 Est GFR (CKD-EPI)NonAf 43.49 POC Glucometer Random Glucose 311 H Calcium 9.3 Total Bilirubin 0.6 AST 34 ALT 54 Alkaline Phosphatase 121 H Total Protein 6.7 Albumin 3.6 RPR Titer Nonreactive TB (QFT) Incubation TB Test (QFT) Nil TB Test (QFT) Mitogen TB Test (QFT) Antigen TB Test (QFT) TB Positive Criteria 02/08/19 02/08/19 02/08/19 08:00 10:02 16:45 WBC RBC Hgb Hct MCV MCH MCHC RDW Plt Count MPV Sodium Potassium Chloride Carbon Dioxide Anion Gap BUN Creatinine Est GFR (CKD-EPI)AfAm Est GFR (CKD-EPI)NonAf POC Glucometer 342 331 Random Glucose Calcium Total Bilirubin AST ALT Alkaline Phosphatase Total Protein Albumin RPR Titer TB (QFT) Incubation TB Test (QFT) Nil 0.03 TB Test (QFT) Mitogen >10.00 TB Test (QFT) Antigen 0.04 TB Test (QFT) Negative TB Positive Criteria 02/08/19 02/09/19 02/09/19 20:34 05:42 10:16 WBC RBC Hgb Hct MCV MCH MCHC RDW Plt Count MPV Sodium 138 Potassium 4.3 Chloride 100 Carbon Dioxide 31 Anion Gap 7 L BUN 16.4 Creatinine 1.7 H Est GFR (CKD-EPI)AfAm 50.40 Est GFR (CKD-EPI)NonAf 43.49 POC Glucometer 441 382 Random Glucose 425 H* Calcium 10.2 H Total Bilirubin AST ALT Alkaline Phosphatase Total Protein Albumin RPR Titer TB (QFT) Incubation TB Test (QFT) Nil TB Test (QFT) Mitogen TB Test (QFT) Antigen TB Test (QFT) TB Positive Criteria 02/09/19 02/09/19 02/09/19 11:38 16:21 22:06 WBC RBC Hgb Hct MCV MCH MCHC RDW Plt Count MPV Sodium Potassium Chloride Carbon Dioxide Anion Gap BUN Creatinine Est GFR (CKD-EPI)AfAm Est GFR (CKD-EPI)NonAf POC Glucometer [phone] Random Glucose Calcium Total Bilirubin AST ALT Alkaline Phosphatase Total Protein Albumin RPR Titer TB (QFT) Incubation TB Test (QFT) Nil TB Test (QFT) Mitogen TB Test (QFT) Antigen TB Test (QFT) TB Positive Criteria 02/10/19 02/10/19 02/10/19 05:41 09:32 16:23 WBC RBC Hgb Hct MCV MCH MCHC RDW Plt Count MPV Sodium Potassium Chloride Carbon Dioxide Anion Gap BUN Creatinine Est GFR (CKD-EPI)AfAm Est GFR (CKD-EPI)NonAf POC Glucometer [phone] Random Glucose Calcium Total Bilirubin AST ALT Alkaline Phosphatase Total Protein Albumin RPR Titer TB (QFT) Incubation TB Test (QFT) Nil TB Test (QFT) Mitogen TB Test (QFT) Antigen TB Test (QFT) TB Positive Criteria 02/10/19 02/11/19 02/11/19 21:34 06:12 10:07 WBC RBC Hgb Hct MCV MCH MCHC RDW Plt Count MPV Sodium Potassium Chloride Carbon Dioxide Anion Gap BUN Creatinine Est GFR (CKD-EPI)AfAm Est GFR (CKD-EPI)NonAf POC Glucometer [phone] Random Glucose Calcium Total Bilirubin AST ALT Alkaline Phosphatase Total Protein Albumin RPR Titer TB (QFT) Incubation TB Test (QFT) Nil TB Test (QFT) Mitogen TB Test (QFT) Antigen TB Test (QFT) TB Positive Criteria 02/11/19 02/11/19 02/12/19 16:40 21:58 05:53 WBC RBC Hgb Hct MCV MCH MCHC RDW Plt Count MPV Sodium Potassium Chloride Carbon Dioxide Anion Gap BUN Creatinine Est GFR (CKD-EPI)AfAm Est GFR (CKD-EPI)NonAf POC Glucometer [phone] Random Glucose Calcium Total Bilirubin AST ALT Alkaline Phosphatase Total Protein Albumin RPR Titer TB (QFT) Incubation TB Test (QFT) Nil TB Test (QFT) Mitogen TB Test (QFT) Antigen TB Test (QFT) TB Positive Criteria 02/12/19 02/12/19 02/12/19 11:17 16:14 21:42 WBC RBC Hgb Hct MCV MCH MCHC RDW Plt Count MPV Sodium Potassium Chloride Carbon Dioxide Anion Gap BUN Creatinine Est GFR (CKD-EPI)AfAm Est GFR (CKD-EPI)NonAf POC Glucometer [phone] Random Glucose Calcium Total Bilirubin AST ALT Alkaline Phosphatase Total Protein Albumin RPR Titer TB (QFT) Incubation TB Test (QFT) Nil TB Test (QFT) Mitogen TB Test (QFT) Antigen TB Test (QFT) TB Positive Criteria 02/13/19 02/13/19 02/13/19 05:04 11:52 16:53 WBC RBC Hgb Hct MCV MCH MCHC RDW Plt Count MPV Sodium Potassium Chloride Carbon Dioxide Anion Gap BUN Creatinine Est GFR (CKD-EPI)AfAm Est GFR (CKD-EPI)NonAf POC Glucometer [phone] Random Glucose Calcium Total Bilirubin AST ALT Alkaline Phosphatase Total Protein Albumin RPR Titer TB (QFT) Incubation TB Test (QFT) Nil TB Test (QFT) Mitogen TB Test (QFT) Antigen TB Test (QFT) TB Positive Criteria 02/13/19 02/14/19 02/14/19 21:05 06:24 12:00 WBC RBC Hgb Hct MCV MCH MCHC RDW Plt Count MPV Sodium Potassium Chloride Carbon Dioxide Anion Gap BUN Creatinine Est GFR (CKD-EPI)AfAm Est GFR (CKD-EPI)NonAf POC Glucometer [phone] Random Glucose Calcium Total Bilirubin AST ALT Alkaline Phosphatase Total Protein Albumin RPR Titer TB (QFT) Incubation TB Test (QFT) Nil TB Test (QFT) Mitogen TB Test (QFT) Antigen TB Test (QFT) TB Positive Criteria Oral exam: Right lower molar tooth and gum swelling with redness. Assessment: 02/14/19 13:29 A/P tooth Abscess Poor teeth hygiene Plan: Amoxicillin 500 mg po tid x 10 days viscous lidocaine 2% to swish and spit as directed for pain D/w pt the need to follow up with his dentist after rehab for dental evaluation and care.
[2019-02-14] MEDS: METHOCARBAMOL 500 MG TABLET PO PRN ×2 (14:01→22:10)
[2019-02-14] MEDS: AMOXICILLIN 500 MG CAPSULE (FP) PO SCH ×2 (14:01→22:06)
[2019-02-14] MEDS: LIDOCAINE VISCOUS 2% ORAL/TOP 20 ML UNIT-DOSE CUP MM PRN ×2 (14:04→22:11)
[2019-02-14] MEDS: INSULIN (LEVEMIR) 100 UNITS/ML UNITS SQ SCH (22:07)
[2019-02-14] MEDS: THIAMINE HCL 100 MG TABLET (FP) PO SCH (22:09)
[2019-02-14] MEDS: MIRTAZAPINE 30 MG TABLET (FP) PO SCH (22:09)
[2019-02-15] MEDS: METHOCARBAMOL 500 MG TABLET PO PRN ×3 (06:23→19:57)
[2019-02-15] MEDS: AMOXICILLIN 500 MG CAPSULE (FP) PO SCH ×3 (06:23→22:02)
[2019-02-15] MEDS: hydrOXYzine PAMOATE 50 MG CAPSULE (FP) PO PRN ×4 (06:46→19:57)
[2019-02-15] MEDS ORDERED: INSULIN (NOVOLOG) ASPART 100 UNITS/ML 10ML VIAL ONE (07:32)
[2019-02-15] MEDS: INSULIN (NOVOLOG) ASPART 100 UNITS/ML 10ML VIAL SQ SCH ×3 (07:46→17:09)
[2019-02-15] MEDS: ASPIRIN 81 MG CHEWABLE TABLETS PO SCH (11:12)
[2019-02-15] MEDS: TACROLIMUS ANHYDROUS 1 MG CAPSULE PO SCH ×2 (11:12→22:43)
[2019-02-15] MEDS: GABAPENTIN 300 MG CAPSULE (FP) PO SCH ×2 (11:12→22:02)
[2019-02-15] MEDS: PRENATAL VITAMINS W/ FOLIC ACID TABLET (FP) PO SCH (11:15)
[2019-02-15] MEDS: NIFEdipine E.R. 90 MG TABLET (FP) PO SCH (11:15)
--- NOTE | 2019-02-15 15:20 | PN ---
[facility] Progress Note Note: Pt reports he is on blood pressure medications that are not ordered so far. this provider called pt's outside pharmacy to confirm medications and spoke to the pharmacist Mr. Baumann who confirmed pt is on these meds: -Hydralazine 100 mg po BID -Atorvastatin 40 mg po hs(Pt states he has not been taking it and last took it in 2017 when doctor at [facility] told him his cholesterol was good and did not need it) -Atenolol 100 mg po daily -Nifedipine 90 mg po daily(currently taking) -Aspirin 81 mg po daily(currently taking) -Basaglar insulin 35 units sc @ bedtime(currently taking Lantus) This process description writer has asked pharmacist to fax a copy of the medications. Fax copy is still pending to be received for review of what is current on list of meds. Vital Signs (72 hours) 02/13/19 02/14/19 02/14/19 15:42 00:30 03:30 Temperature 98.6 F Pulse Rate 94 H Respiratory 20 18 18 Rate Blood Pressure 137/90 02/14/19 02/15/19 02/15/19 07:23 00:30 03:30 Temperature 97.6 F Pulse Rate 76 Respiratory 18 18 18 Rate Blood Pressure 141/93 Vital Signs (72 hours) 02/13/19 02/14/19 02/14/19 15:42 00:30 03:30 Temperature 98.6 F Pulse Rate 94 H Respiratory 20 18 18 Rate Blood Pressure 137/90 02/14/19 02/15/19 02/15/19 07:23 00:30 03:30 Temperature 97.6 F Pulse Rate 76 Respiratory 18 18 18 Rate Blood Pressure 141/93 02/15/19 08:22 Temperature 97.5 F L Pulse Rate 81 Respiratory 18 Rate Blood Pressure 153/89 Pt reports was on these meds until he came to detox. reports he has not been taking the Lipitor since 2017. Will evaluate BP control and add hydralazine and atenolol.
[2019-02-15] MEDS: predniSONE 1 MG TABLET (FP) PO SCH (15:35)
[2019-02-15] MEDS: MYCOPHENOLATE MOFETIL 500 MG TABLET PO SCH ×2 (15:36→22:03)
[2019-02-15] MEDS: MIRTAZAPINE 30 MG TABLET (FP) PO SCH (22:02)
[2019-02-15] MEDS: THIAMINE HCL 100 MG TABLET (FP) PO SCH (22:02)
[2019-02-15] MEDS: MELATONIN 5 MG TABLETS PO PRN (22:06)
[2019-02-15] MEDS: INSULIN (LEVEMIR) 100 UNITS/ML UNITS SQ SCH (22:44)
[2019-02-16] MEDS: hydrOXYzine PAMOATE 50 MG CAPSULE (FP) PO PRN ×3 (06:25→18:47)
[2019-02-16] MEDS: AMOXICILLIN 500 MG CAPSULE (FP) PO SCH ×3 (06:25→22:10)
[2019-02-16] MEDS: METHOCARBAMOL 500 MG TABLET PO PRN ×2 (06:26→14:12)
[2019-02-16] MEDS: INSULIN (NOVOLOG) ASPART 100 UNITS/ML 10ML VIAL SQ SCH ×3 (07:23→16:45)
[2019-02-16] MEDS: predniSONE 1 MG TABLET (FP) PO SCH (10:53)
[2019-02-16] MEDS: GABAPENTIN 300 MG CAPSULE (FP) PO SCH ×2 (10:53→22:10)
[2019-02-16] MEDS: ASPIRIN 81 MG CHEWABLE TABLETS PO SCH (10:53)
[2019-02-16] MEDS: MYCOPHENOLATE MOFETIL 500 MG TABLET PO SCH ×2 (10:54→22:12)
[2019-02-16] MEDS: PRENATAL VITAMINS W/ FOLIC ACID TABLET (FP) PO SCH (10:55)
[2019-02-16] MEDS: NIFEdipine E.R. 90 MG TABLET (FP) PO SCH (10:56)
[2019-02-16] MEDS: TACROLIMUS ANHYDROUS 1 MG CAPSULE PO SCH ×2 (11:11→22:12)
[2019-02-16] MEDS ORDERED: INSULIN (NOVOLOG) ASPART 100 UNITS/ML 10ML VIAL ONE (12:01)
[2019-02-16] MEDS ORDERED: hydrALAZINE HCL 50 MG TABLET (FP) PO ONE (13:15)
--- NOTE | 2019-02-16 13:17 | PN ---
[facility] Progress Note Note: Pt c/o severe chronic back pain and requests Robaxin frequency changed. Reports chronic back pain due to past injury on the job Pt is currently on Robaxin 500 mg po tid. Vital Signs - 24 hr 02/16/19 02/16/19 02/16/19 00:30 03:30 07:19 Temperature 97.3 F L Pulse Rate 75 Respiratory 18 18 18 Rate Blood Pressure 149/101 H Laboratory Tests 02/07/19 02/07/19 02/08/19 19:51 21:55 05:56 WBC RBC Hgb Hct MCV MCH MCHC RDW Plt Count MPV Sodium Potassium Chloride Carbon Dioxide Anion Gap BUN Creatinine Est GFR (CKD-EPI)AfAm Est GFR (CKD-EPI)NonAf POC Glucometer 135 238 209 Random Glucose Calcium Total Bilirubin AST ALT Alkaline Phosphatase Total Protein Albumin RPR Titer TB (QFT) Incubation TB Test (QFT) Nil TB Test (QFT) Mitogen TB Test (QFT) Antigen TB Test (QFT) TB Positive Criteria 02/08/19 02/08/19 02/08/19 08:00 08:00 08:00 WBC 6.9 RBC 4.43 Hgb 14.0 Hct 41.8 MCV 94.3 MCH 31.5 MCHC 33.4 RDW 13.5 Plt Count 300 MPV 9.1 Sodium 137 Potassium 4.5 Chloride 102 Carbon Dioxide 27 Anion Gap 8 BUN 23.5 H Creatinine 1.7 H Est GFR (CKD-EPI)AfAm 50.40 Est GFR (CKD-EPI)NonAf 43.49 POC Glucometer Random Glucose 311 H Calcium 9.3 Total Bilirubin 0.6 AST 34 ALT 54 Alkaline Phosphatase 121 H Total Protein 6.7 Albumin 3.6 RPR Titer Nonreactive TB (QFT) Incubation TB Test (QFT) Nil TB Test (QFT) Mitogen TB Test (QFT) Antigen TB Test (QFT) TB Positive Criteria 02/08/19 02/08/19 02/08/19 08:00 10:02 16:45 WBC RBC Hgb Hct MCV MCH MCHC RDW Plt Count MPV Sodium Potassium Chloride Carbon Dioxide Anion Gap BUN Creatinine Est GFR (CKD-EPI)AfAm Est GFR (CKD-EPI)NonAf POC Glucometer 342 331 Random Glucose Calcium Total Bilirubin AST ALT Alkaline Phosphatase Total Protein Albumin RPR Titer TB (QFT) Incubation TB Test (QFT) Nil 0.03 TB Test (QFT) Mitogen >10.00 TB Test (QFT) Antigen 0.04 TB Test (QFT) Negative TB Positive Criteria 02/08/19 02/09/19 02/09/19 20:34 05:42 10:16 WBC RBC Hgb Hct MCV MCH MCHC RDW Plt Count MPV Sodium 138 Potassium 4.3 Chloride 100 Carbon Dioxide 31 Anion Gap 7 L BUN 16.4 Creatinine 1.7 H Est GFR (CKD-EPI)AfAm 50.40 Est GFR (CKD-EPI)NonAf 43.49 POC Glucometer 441 382 Random Glucose 425 H* Calcium 10.2 H Total Bilirubin AST ALT Alkaline Phosphatase Total Protein Albumin RPR Titer TB (QFT) Incubation TB Test (QFT) Nil TB Test (QFT) Mitogen TB Test (QFT) Antigen TB Test (QFT) TB Positive Criteria 02/09/19 02/09/19 02/09/19 11:38 16:21 22:06 WBC RBC Hgb Hct MCV MCH MCHC RDW Plt Count MPV Sodium Potassium Chloride Carbon Dioxide Anion Gap BUN Creatinine Est GFR (CKD-EPI)AfAm Est GFR (CKD-EPI)NonAf POC Glucometer [phone] Random Glucose Calcium Total Bilirubin AST ALT Alkaline Phosphatase Total Protein Albumin RPR Titer TB (QFT) Incubation TB Test (QFT) Nil TB Test (QFT) Mitogen TB Test (QFT) Antigen TB Test (QFT) TB Positive Criteria 02/10/19 02/10/19 02/10/19 05:41 09:32 16:23 WBC RBC Hgb Hct MCV MCH MCHC RDW Plt Count MPV Sodium Potassium Chloride Carbon Dioxide Anion Gap BUN Creatinine Est GFR (CKD-EPI)AfAm Est GFR (CKD-EPI)NonAf POC Glucometer [phone] Random Glucose Calcium Total Bilirubin AST ALT Alkaline Phosphatase Total Protein Albumin RPR Titer TB (QFT) Incubation TB Test (QFT) Nil TB Test (QFT) Mitogen TB Test (QFT) Antigen TB Test (QFT) TB Positive Criteria 02/10/19 02/11/19 02/11/19 21:34 06:12 10:07 WBC RBC Hgb Hct MCV MCH MCHC RDW Plt Count MPV Sodium Potassium Chloride Carbon Dioxide Anion Gap BUN Creatinine Est GFR (CKD-EPI)AfAm Est GFR (CKD-EPI)NonAf POC Glucometer [phone] Random Glucose Calcium Total Bilirubin AST ALT Alkaline Phosphatase Total Protein Albumin RPR Titer TB (QFT) Incubation TB Test (QFT) Nil TB Test (QFT) Mitogen TB Test (QFT) Antigen TB Test (QFT) TB Positive Criteria 02/11/19 02/11/19 02/12/19 16:40 21:58 05:53 WBC RBC Hgb Hct MCV MCH MCHC RDW Plt Count MPV Sodium Potassium Chloride Carbon Dioxide Anion Gap BUN Creatinine Est GFR (CKD-EPI)AfAm Est GFR (CKD-EPI)NonAf POC Glucometer 364 441 527 Random Glucose Calcium Total Bilirubin AST ALT Alkaline Phosphatase Total Protein Albumin RPR Titer TB (QFT) Incubation TB Test (QFT) Nil TB Test (QFT) Mitogen TB Test (QFT) Antigen TB Test (QFT) TB Positive Criteria 02/12/19 02/12/19 02/12/19 11:17 16:14 21:42 WBC RBC Hgb Hct MCV MCH MCHC RDW Plt Count MPV Sodium Potassium Chloride Carbon Dioxide Anion Gap BUN Creatinine Est GFR (CKD-EPI)AfAm Est GFR (CKD-EPI)NonAf POC Glucometer [phone] Random Glucose Calcium Total Bilirubin AST ALT Alkaline Phosphatase Total Protein Albumin RPR Titer TB (QFT) Incubation TB Test (QFT) Nil TB Test (QFT) Mitogen TB Test (QFT) Antigen TB Test (QFT) TB Positive Criteria 02/13/19 02/13/19 02/13/19 05:04 11:52 16:53 WBC RBC Hgb Hct MCV MCH MCHC RDW Plt Count MPV Sodium Potassium Chloride Carbon Dioxide Anion Gap BUN Creatinine Est GFR (CKD-EPI)AfAm Est GFR (CKD-EPI)NonAf POC Glucometer [phone] Random Glucose Calcium Total Bilirubin AST ALT Alkaline Phosphatase Total Protein Albumin RPR Titer TB (QFT) Incubation TB Test (QFT) Nil TB Test (QFT) Mitogen TB Test (QFT) Antigen TB Test (QFT) TB Positive Criteria 02/13/19 02/14/19 02/14/19 21:05 06:24 12:00 WBC RBC Hgb Hct MCV MCH MCHC RDW Plt Count MPV Sodium Potassium Chloride Carbon Dioxide Anion Gap BUN Creatinine Est GFR (CKD-EPI)AfAm Est GFR (CKD-EPI)NonAf POC Glucometer [phone] Random Glucose Calcium Total Bilirubin AST ALT Alkaline Phosphatase Total Protein Albumin RPR Titer TB (QFT) Incubation TB Test (QFT) Nil TB Test (QFT) Mitogen TB Test (QFT) Antigen TB Test (QFT) TB Positive Criteria 02/14/19 02/14/19 02/15/19 16:46 20:41 06:18 WBC RBC Hgb Hct MCV MCH MCHC RDW Plt Count MPV Sodium Potassium Chloride Carbon Dioxide Anion Gap BUN Creatinine Est GFR (CKD-EPI)AfAm Est GFR (CKD-EPI)NonAf POC Glucometer [phone] Random Glucose Calcium Total Bilirubin AST ALT Alkaline Phosphatase Total Protein Albumin RPR Titer TB (QFT) Incubation TB Test (QFT) Nil TB Test (QFT) Mitogen TB Test (QFT) Antigen TB Test (QFT) TB Positive Criteria 02/15/19 02/15/19 02/15/19 12:07 17:07 21:57 WBC RBC Hgb Hct MCV MCH MCHC RDW Plt Count MPV Sodium Potassium Chloride Carbon Dioxide Anion Gap BUN Creatinine Est GFR (CKD-EPI)AfAm Est GFR (CKD-EPI)NonAf POC Glucometer [phone] Random Glucose Calcium Total Bilirubin AST ALT Alkaline Phosphatase Total Protein Albumin RPR Titer TB (QFT) Incubation TB Test (QFT) Nil TB Test (QFT) Mitogen TB Test (QFT) Antigen TB Test (QFT) TB Positive Criteria 02/16/19 02/16/19 06:21 11:58 WBC RBC Hgb Hct MCV MCH MCHC RDW Plt Count MPV Sodium Potassium Chloride Carbon Dioxide Anion Gap BUN Creatinine Est GFR (CKD-EPI)AfAm Est GFR (CKD-EPI)NonAf POC Glucometer 366 524 Random Glucose Calcium Total Bilirubin AST ALT Alkaline Phosphatase Total Protein Albumin RPR Titer TB (QFT) Incubation TB Test (QFT) Nil TB Test (QFT) Mitogen TB Test (QFT) Antigen TB Test (QFT) TB Positive Criteria A/P Chronic back pain Change Robaxin 500 mg po QID prn Pt educated on effect of drugs on kidneys and liver and the need for alternative therapy.
[2019-02-16] MEDS ORDERED: HYDRALAZINE HCL PO SCH (22:00)
[2019-02-16] MEDS: MIRTAZAPINE 30 MG TABLET (FP) PO SCH (22:10)
[2019-02-16] MEDS: INSULIN (LEVEMIR) 100 UNITS/ML UNITS SQ SCH (22:11)
[2019-02-16] MEDS: hydrALAZINE HCL 50 MG TABLET (FP) PO SCH (22:11)
[2019-02-16] MEDS: THIAMINE HCL 100 MG TABLET (FP) PO SCH (22:13)
[2019-02-16] MEDS: MELATONIN 5 MG TABLETS PO PRN (22:13)
[2019-02-17] MEDS: AMOXICILLIN 500 MG CAPSULE (FP) PO SCH ×3 (06:30→22:11)
[2019-02-17] MEDS: hydrOXYzine PAMOATE 50 MG CAPSULE (FP) PO PRN ×3 (06:32→22:15)
[2019-02-17] MEDS: METHOCARBAMOL 500 MG TABLET PO PRN ×3 (06:32→22:15)
[2019-02-17] MEDS ORDERED: INSULIN (NOVOLOG) ASPART 100 UNITS/ML 10ML VIAL ONE (07:29)
[2019-02-17] MEDS: INSULIN (NOVOLOG) ASPART 100 UNITS/ML 10ML VIAL SQ SCH ×3 (07:38→16:56)
[2019-02-17] MEDS: hydrALAZINE HCL 50 MG TABLET (FP) PO SCH ×2 (10:12→22:12)
[2019-02-17] MEDS: ASPIRIN 81 MG CHEWABLE TABLETS PO SCH (10:12)
[2019-02-17] MEDS: GABAPENTIN 300 MG CAPSULE (FP) PO SCH ×2 (10:12→22:11)
[2019-02-17] MEDS: PRENATAL VITAMINS W/ FOLIC ACID TABLET (FP) PO SCH (10:12)
[2019-02-17] MEDS: predniSONE 1 MG TABLET (FP) PO SCH (10:13)
[2019-02-17] MEDS: NIFEdipine E.R. 90 MG TABLET (FP) PO SCH (10:13)
[2019-02-17] MEDS: TACROLIMUS ANHYDROUS 1 MG CAPSULE PO SCH ×2 (10:13→22:17)
[2019-02-17] MEDS: MYCOPHENOLATE MOFETIL 500 MG TABLET PO SCH ×2 (10:14→22:15)
[2019-02-17] MEDS: LIDOCAINE VISCOUS 2% ORAL/TOP 20 ML UNIT-DOSE CUP MM PRN (10:17)
[2019-02-17] MEDS: MIRTAZAPINE 30 MG TABLET (FP) PO SCH (22:11)
[2019-02-17] MEDS: MELATONIN 5 MG TABLETS PO PRN (22:12)
[2019-02-17] MEDS: THIAMINE HCL 100 MG TABLET (FP) PO SCH (22:13)
[2019-02-17] MEDS: INSULIN (LEVEMIR) 100 UNITS/ML UNITS SQ SCH (22:18)
[2019-02-18] MEDS: AMOXICILLIN 500 MG CAPSULE (FP) PO SCH ×3 (06:49→21:51)
[2019-02-18] MEDS: hydrOXYzine PAMOATE 50 MG CAPSULE (FP) PO PRN ×3 (06:49→18:55)
[2019-02-18] MEDS: METHOCARBAMOL 500 MG TABLET PO PRN ×2 (06:49→13:09)
[2019-02-18] MEDS ORDERED: INSULIN (NOVOLOG) ASPART 100 UNITS/ML 10ML VIAL ONE (07:39)
[2019-02-18] MEDS: INSULIN (NOVOLOG) ASPART 100 UNITS/ML 10ML VIAL SQ SCH ×3 (07:47→16:35)
[2019-02-18] MEDS: ASPIRIN 81 MG CHEWABLE TABLETS PO SCH (10:27)
[2019-02-18] MEDS: TACROLIMUS ANHYDROUS 1 MG CAPSULE PO SCH ×2 (10:28→21:53)
[2019-02-18] MEDS: PRENATAL VITAMINS W/ FOLIC ACID TABLET (FP) PO SCH (10:28)
[2019-02-18] MEDS: hydrALAZINE HCL 50 MG TABLET (FP) PO SCH ×2 (10:28→21:53)
[2019-02-18] MEDS: MYCOPHENOLATE MOFETIL 500 MG TABLET PO SCH ×2 (10:28→21:54)
[2019-02-18] MEDS: GABAPENTIN 300 MG CAPSULE (FP) PO SCH ×2 (10:28→21:51)
[2019-02-18] MEDS: predniSONE 1 MG TABLET (FP) PO SCH (10:29)
[2019-02-18] MEDS: NIFEdipine E.R. 90 MG TABLET (FP) PO SCH (10:29)
[2019-02-18] MEDS: LIDOCAINE VISCOUS 2% ORAL/TOP 20 ML UNIT-DOSE CUP MM PRN (10:33)
[2019-02-18] MEDS: MIRTAZAPINE 30 MG TABLET (FP) PO SCH (21:52)
[2019-02-18] MEDS: THIAMINE HCL 100 MG TABLET (FP) PO SCH (21:52)
[2019-02-18] MEDS: INSULIN (LEVEMIR) 100 UNITS/ML UNITS SQ SCH (21:55)
[2019-02-19] MEDS: METHOCARBAMOL 500 MG TABLET PO PRN ×3 (06:34→21:56)
[2019-02-19] MEDS: hydrOXYzine PAMOATE 50 MG CAPSULE (FP) PO PRN ×2 (06:35→17:45)
[2019-02-19] MEDS: AMOXICILLIN 500 MG CAPSULE (FP) PO SCH ×3 (07:44→21:51)
[2019-02-19] MEDS: INSULIN (NOVOLOG) ASPART 100 UNITS/ML 10ML VIAL SQ SCH ×3 (07:50→16:58)
[2019-02-19] MEDS: ASPIRIN 81 MG CHEWABLE TABLETS PO SCH (10:45)
[2019-02-19] MEDS: MYCOPHENOLATE MOFETIL 500 MG TABLET PO SCH ×2 (10:45→21:53)
[2019-02-19] MEDS: NIFEdipine E.R. 90 MG TABLET (FP) PO SCH (10:45)
[2019-02-19] MEDS: PRENATAL VITAMINS W/ FOLIC ACID TABLET (FP) PO SCH (10:45)
[2019-02-19] MEDS: hydrALAZINE HCL 50 MG TABLET (FP) PO SCH ×2 (10:45→21:52)
[2019-02-19] MEDS: predniSONE 1 MG TABLET (FP) PO SCH (10:45)
[2019-02-19] MEDS: TACROLIMUS ANHYDROUS 1 MG CAPSULE PO SCH ×2 (10:45→21:54)
[2019-02-19] MEDS: GABAPENTIN 300 MG CAPSULE (FP) PO SCH ×2 (10:45→21:51)
[2019-02-19] MEDS: MIRTAZAPINE 30 MG TABLET (FP) PO SCH (21:51)
[2019-02-19] MEDS: MELATONIN 5 MG TABLETS PO PRN (21:55)
[2019-02-19] MEDS: THIAMINE HCL 100 MG TABLET (FP) PO SCH (21:55)
[2019-02-19] MEDS ORDERED: CHLORHEXIDINE GLUCONATE 0.12% 15ML CUP MM ONE (22:13)
[2019-02-19] MEDS: INSULIN (LEVEMIR) 100 UNITS/ML UNITS SQ SCH (22:20)
[2019-02-20] MEDS: INSULIN (NOVOLOG) ASPART 100 UNITS/ML 10ML VIAL SQ SCH ×3 (06:42→16:46)
[2019-02-20] MEDS: AMOXICILLIN 500 MG CAPSULE (FP) PO SCH ×3 (06:43→21:49)
[2019-02-20] MEDS: hydrOXYzine PAMOATE 50 MG CAPSULE (FP) PO PRN ×3 (06:44→18:04)
[2019-02-20] MEDS: METHOCARBAMOL 500 MG TABLET PO PRN ×3 (06:44→21:49)
[2019-02-20] MEDS: ACETAMINOPHEN 325 MG TABLET (FP) PO PRN (08:54)
[2019-02-20] MEDS: LIDOCAINE VISCOUS 2% ORAL/TOP 20 ML UNIT-DOSE CUP MM PRN ×2 (08:54→18:05)
[2019-02-20] MEDS: PRENATAL VITAMINS W/ FOLIC ACID TABLET (FP) PO SCH (10:13)
[2019-02-20] MEDS: GABAPENTIN 300 MG CAPSULE (FP) PO SCH ×2 (10:13→21:55)
[2019-02-20] MEDS: ASPIRIN 81 MG CHEWABLE TABLETS PO SCH (10:13)
[2019-02-20] MEDS: MYCOPHENOLATE MOFETIL 500 MG TABLET PO SCH ×2 (10:13→21:53)
[2019-02-20] MEDS: NIFEdipine E.R. 90 MG TABLET (FP) PO SCH (10:14)
[2019-02-20] MEDS: hydrALAZINE HCL 50 MG TABLET (FP) PO SCH ×2 (10:15→21:51)
[2019-02-20] MEDS: predniSONE 1 MG TABLET (FP) PO SCH (10:16)
[2019-02-20] MEDS: CHLORHEXIDINE GLUCONATE 0.12% 15ML CUP MM SCH ×2 (10:21→21:50)
[2019-02-20] MEDS: TACROLIMUS ANHYDROUS 1 MG CAPSULE PO SCH ×2 (10:52→21:52)
[2019-02-20] MEDS: MIRTAZAPINE 30 MG TABLET (FP) PO SCH (21:49)
[2019-02-20] MEDS: INSULIN (LEVEMIR) 100 UNITS/ML UNITS SQ SCH (21:50)
[2019-02-20] MEDS: THIAMINE HCL 100 MG TABLET (FP) PO SCH (21:52)
[2019-02-21] MEDS: AMOXICILLIN 500 MG CAPSULE (FP) PO SCH ×3 (06:23→21:50)
[2019-02-21] MEDS: METHOCARBAMOL 500 MG TABLET PO PRN ×4 (06:23→21:54)
[2019-02-21] MEDS: hydrOXYzine PAMOATE 50 MG CAPSULE (FP) PO PRN ×3 (06:23→17:50)
[2019-02-21] MEDS: INSULIN (NOVOLOG) ASPART 100 UNITS/ML 10ML VIAL SQ SCH ×3 (07:59→16:33)
[2019-02-21] MEDS: PRENATAL VITAMINS W/ FOLIC ACID TABLET (FP) PO SCH (10:57)
[2019-02-21] MEDS: hydrALAZINE HCL 50 MG TABLET (FP) PO SCH ×2 (10:57→21:51)
[2019-02-21] MEDS: GABAPENTIN 300 MG CAPSULE (FP) PO SCH ×2 (10:57→21:52)
[2019-02-21] MEDS: ASPIRIN 81 MG CHEWABLE TABLETS PO SCH (10:57)
[2019-02-21] MEDS: MYCOPHENOLATE MOFETIL 500 MG TABLET PO SCH ×2 (10:57→21:55)
[2019-02-21] MEDS: TACROLIMUS ANHYDROUS 1 MG CAPSULE PO SCH ×2 (10:58→21:54)
[2019-02-21] MEDS: NIFEdipine E.R. 90 MG TABLET (FP) PO SCH (10:58)
[2019-02-21] MEDS: predniSONE 1 MG TABLET (FP) PO SCH (10:58)
[2019-02-21] MEDS: CHLORHEXIDINE GLUCONATE 0.12% 15ML CUP MM SCH ×2 (11:00→21:52)
[2019-02-21] MEDS ORDERED: INSULIN (NOVOLOG) ASPART 100 UNITS/ML 10ML VIAL ONE (16:30)
[2019-02-21] MEDS: MIRTAZAPINE 30 MG TABLET (FP) PO SCH (21:50)
[2019-02-21] MEDS: INSULIN (LEVEMIR) 100 UNITS/ML UNITS SQ SCH (21:51)
[2019-02-21] MEDS: THIAMINE HCL 100 MG TABLET (FP) PO SCH (21:53)
[2019-02-21] MEDS: MELATONIN 5 MG TABLETS PO PRN (21:56)
[2019-02-21] MEDS: MAGNESIUM HYDROX 2400MG/30ML ORAL SUSPENSION 30 ML CUP PO PRN (22:55)
[2019-02-22] MEDS ORDERED: INSULIN (NOVOLOG) ASPART 100 UNITS/ML 10ML VIAL ONE (06:24)
[2019-02-22] MEDS: INSULIN (NOVOLOG) ASPART 100 UNITS/ML 10ML VIAL SQ SCH ×3 (06:27→16:51)
[2019-02-22] MEDS: METHOCARBAMOL 500 MG TABLET PO PRN ×2 (06:28→16:53)
[2019-02-22] MEDS: AMOXICILLIN 500 MG CAPSULE (FP) PO SCH ×3 (06:28→21:58)
[2019-02-22] MEDS: hydrOXYzine PAMOATE 50 MG CAPSULE (FP) PO PRN ×3 (06:28→16:53)
[2019-02-22] MEDS: GABAPENTIN 300 MG CAPSULE (FP) PO SCH ×2 (10:20→21:58)
[2019-02-22] MEDS: PRENATAL VITAMINS W/ FOLIC ACID TABLET (FP) PO SCH (11:13)
[2019-02-22] MEDS: hydrALAZINE HCL 50 MG TABLET (FP) PO SCH ×2 (11:14→21:58)
[2019-02-22] MEDS: ASPIRIN 81 MG CHEWABLE TABLETS PO SCH (11:14)
[2019-02-22] MEDS: TACROLIMUS ANHYDROUS 1 MG CAPSULE PO SCH ×2 (11:15→21:59)
[2019-02-22] MEDS: predniSONE 1 MG TABLET (FP) PO SCH (11:16)
[2019-02-22] MEDS: NIFEdipine E.R. 90 MG TABLET (FP) PO SCH (11:16)
[2019-02-22] MEDS: MYCOPHENOLATE MOFETIL 500 MG TABLET PO SCH ×2 (11:17→22:02)
[2019-02-22] MEDS: CHLORHEXIDINE GLUCONATE 0.12% 15ML CUP MM SCH ×2 (11:18→22:04)
[2019-02-22] MEDS: LIDOCAINE VISCOUS 2% ORAL/TOP 20 ML UNIT-DOSE CUP MM PRN (12:56)
[2019-02-22] MEDS: THIAMINE HCL 100 MG TABLET (FP) PO SCH (21:58)
[2019-02-22] MEDS: MIRTAZAPINE 30 MG TABLET (FP) PO SCH (22:00)
[2019-02-22] MEDS: MELATONIN 5 MG TABLETS PO PRN (22:01)
[2019-02-22] MEDS: INSULIN (LEVEMIR) 100 UNITS/ML UNITS SQ SCH (22:04)
[2019-02-23] MEDS: METHOCARBAMOL 500 MG TABLET PO PRN ×2 (06:58→14:48)
[2019-02-23] MEDS: hydrOXYzine PAMOATE 50 MG CAPSULE (FP) PO PRN ×2 (06:58→11:16)
[2019-02-23] MEDS: AMOXICILLIN 500 MG CAPSULE (FP) PO SCH ×3 (06:58→21:41)
[2019-02-23] MEDS: INSULIN (NOVOLOG) ASPART 100 UNITS/ML 10ML VIAL SQ SCH ×3 (07:06→16:43)
[2019-02-23] MEDS: CHLORHEXIDINE GLUCONATE 0.12% 15ML CUP MM SCH ×2 (11:00→21:48)
[2019-02-23] MEDS: GABAPENTIN 300 MG CAPSULE (FP) PO SCH ×2 (11:06→21:41)
[2019-02-23] MEDS: PRENATAL VITAMINS W/ FOLIC ACID TABLET (FP) PO SCH (11:07)
[2019-02-23] MEDS: ASPIRIN 81 MG CHEWABLE TABLETS PO SCH (11:07)
[2019-02-23] MEDS: hydrALAZINE HCL 50 MG TABLET (FP) PO SCH ×2 (11:07→21:41)
[2019-02-23] MEDS: NIFEdipine E.R. 90 MG TABLET (FP) PO SCH (11:08)
[2019-02-23] MEDS: predniSONE 1 MG TABLET (FP) PO SCH (11:11)
[2019-02-23] MEDS: MYCOPHENOLATE MOFETIL 500 MG TABLET PO SCH ×2 (11:11→21:42)
[2019-02-23] MEDS: TACROLIMUS ANHYDROUS 1 MG CAPSULE PO SCH ×2 (11:13→21:42)
[2019-02-23] MEDS: THIAMINE HCL 100 MG TABLET (FP) PO SCH (21:42)
[2019-02-23] MEDS: MELATONIN 5 MG TABLETS PO PRN (21:43)
[2019-02-23] MEDS: MIRTAZAPINE 30 MG TABLET (FP) PO SCH (21:44)
[2019-02-23] MEDS: INSULIN (LEVEMIR) 100 UNITS/ML UNITS SQ SCH (21:45)
[2019-02-24] MEDS: METHOCARBAMOL 500 MG TABLET PO PRN ×2 (06:26→16:48)
[2019-02-24] MEDS: AMOXICILLIN 500 MG CAPSULE (FP) PO SCH (06:27)
[2019-02-24] MEDS: hydrOXYzine PAMOATE 50 MG CAPSULE (FP) PO PRN ×3 (06:27→16:48)
[2019-02-24] MEDS: INSULIN (NOVOLOG) ASPART 100 UNITS/ML 10ML VIAL SQ SCH ×3 (06:31→16:48)
[2019-02-24] MEDS: MAGNESIUM HYDROX 2400MG/30ML ORAL SUSPENSION 30 ML CUP PO PRN (06:56)
[2019-02-24] MEDS: TACROLIMUS ANHYDROUS 1 MG CAPSULE PO SCH ×2 (11:07→21:35)
[2019-02-24] MEDS: GABAPENTIN 300 MG CAPSULE (FP) PO SCH ×2 (11:07→21:34)
[2019-02-24] MEDS: PRENATAL VITAMINS W/ FOLIC ACID TABLET (FP) PO SCH (11:07)
[2019-02-24] MEDS: NIFEdipine E.R. 90 MG TABLET (FP) PO SCH (11:08)
[2019-02-24] MEDS: MYCOPHENOLATE MOFETIL 500 MG TABLET PO SCH ×2 (11:09→21:36)
[2019-02-24] MEDS: ASPIRIN 81 MG CHEWABLE TABLETS PO SCH (11:09)
[2019-02-24] MEDS: hydrALAZINE HCL 50 MG TABLET (FP) PO SCH ×2 (11:09→21:33)
[2019-02-24] MEDS: predniSONE 1 MG TABLET (FP) PO SCH (11:10)
[2019-02-24] MEDS: CHLORHEXIDINE GLUCONATE 0.12% 15ML CUP MM SCH ×2 (11:11→21:36)
[2019-02-24] MEDS: INSULIN (LEVEMIR) 100 UNITS/ML UNITS SQ SCH (21:34)
[2019-02-24] MEDS: MIRTAZAPINE 30 MG TABLET (FP) PO SCH (21:34)
[2019-02-24] MEDS: THIAMINE HCL 100 MG TABLET (FP) PO SCH (21:36)
[2019-02-24] MEDS: MELATONIN 5 MG TABLETS PO PRN (21:37)
[2019-02-25] MEDS: METHOCARBAMOL 500 MG TABLET PO PRN ×2 (06:18→12:40)
[2019-02-25] MEDS: INSULIN (NOVOLOG) ASPART 100 UNITS/ML 10ML VIAL SQ SCH ×3 (06:19→16:58)
[2019-02-25] MEDS: hydrOXYzine PAMOATE 50 MG CAPSULE (FP) PO PRN ×2 (06:19→12:40)
[2019-02-25] MEDS: GABAPENTIN 300 MG CAPSULE (FP) PO SCH ×2 (10:19→22:04)
[2019-02-25] MEDS: ASPIRIN 81 MG CHEWABLE TABLETS PO SCH (10:19)
[2019-02-25] MEDS: hydrALAZINE HCL 50 MG TABLET (FP) PO SCH ×2 (10:19→22:04)
[2019-02-25] MEDS: MYCOPHENOLATE MOFETIL 500 MG TABLET PO SCH (10:20)
[2019-02-25] MEDS: predniSONE 1 MG TABLET (FP) PO SCH (10:20)
[2019-02-25] MEDS: NIFEdipine E.R. 90 MG TABLET (FP) PO SCH (10:21)
[2019-02-25] MEDS: PRENATAL VITAMINS W/ FOLIC ACID TABLET (FP) PO SCH (10:21)
[2019-02-25] MEDS: TACROLIMUS ANHYDROUS 1 MG CAPSULE PO SCH (10:22)
[2019-02-25] MEDS: CHLORHEXIDINE GLUCONATE 0.12% 15ML CUP MM SCH ×2 (10:22→22:05)
[2019-02-25] MEDS: ACETAMINOPHEN 325 MG TABLET (FP) PO PRN (17:36)
[2019-02-25] MEDS: INSULIN (LEVEMIR) 100 UNITS/ML UNITS SQ SCH (21:59)
[2019-02-25] MEDS ORDERED: INSULIN (LEVEMIR) 100 UNITS/ML UNITS SQ ONE (22:02)
[2019-02-25] MEDS: MELATONIN 5 MG TABLETS PO PRN (22:04)
[2019-02-25] MEDS: THIAMINE HCL 100 MG TABLET (FP) PO SCH (22:04)
[2019-02-25] MEDS: MIRTAZAPINE 30 MG TABLET (FP) PO SCH (22:04)
[2019-02-26] MEDS: MYCOPHENOLATE MOFETIL 500 MG TABLET PO SCH ×3 (00:19→21:49)
[2019-02-26] MEDS: TACROLIMUS ANHYDROUS 1 MG CAPSULE PO SCH ×3 (00:19→21:51)
[2019-02-26] MEDS: INSULIN (NOVOLOG) ASPART 100 UNITS/ML 10ML VIAL SQ SCH ×3 (06:22→16:40)
[2019-02-26] MEDS: ACETAMINOPHEN 325 MG TABLET (FP) PO PRN ×3 (09:32→22:09)
[2019-02-26] MEDS: ASPIRIN 81 MG CHEWABLE TABLETS PO SCH (11:31)
[2019-02-26] MEDS: hydrALAZINE HCL 50 MG TABLET (FP) PO SCH ×2 (11:31→21:48)
[2019-02-26] MEDS: PRENATAL VITAMINS W/ FOLIC ACID TABLET (FP) PO SCH (11:31)
[2019-02-26] MEDS: GABAPENTIN 300 MG CAPSULE (FP) PO SCH ×2 (11:31→21:50)
[2019-02-26] MEDS: CHLORHEXIDINE GLUCONATE 0.12% 15ML CUP MM SCH ×2 (11:31→21:50)
[2019-02-26] MEDS: NIFEdipine E.R. 90 MG TABLET (FP) PO SCH (11:34)
[2019-02-26] MEDS: hydrOXYzine PAMOATE 50 MG CAPSULE (FP) PO PRN ×2 (11:35→15:57)
[2019-02-26] MEDS ORDERED: INSULIN (NOVOLOG) ASPART 100 UNITS/ML 10ML VIAL ONE ×3 (11:43→13:36)
[2019-02-26] MEDS ORDERED: INSULIN (LEVEMIR) 100 UNITS/ML UNITS SQ ONE (12:22)
[2019-02-26] MEDS: predniSONE 1 MG TABLET (FP) PO SCH (12:23)
[2019-02-26] MEDS: LIDOCAINE VISCOUS 2% ORAL/TOP 20 ML UNIT-DOSE CUP MM PRN (13:43)
[2019-02-26] MEDS: MIRTAZAPINE 30 MG TABLET (FP) PO SCH (21:48)
[2019-02-26] MEDS: INSULIN (LEVEMIR) 100 UNITS/ML UNITS SQ SCH (21:48)
[2019-02-26] MEDS: THIAMINE HCL 100 MG TABLET (FP) PO SCH (21:49)
[2019-02-26] MEDS: MELATONIN 5 MG TABLETS PO PRN (21:49)
[2019-02-27] MEDS: INSULIN (NOVOLOG) ASPART 100 UNITS/ML 10ML VIAL SQ SCH ×3 (06:35→16:46)
[2019-02-27] MEDS: ACETAMINOPHEN 325 MG TABLET (FP) PO PRN ×2 (09:03→17:37)
[2019-02-27] MEDS: hydrALAZINE HCL 50 MG TABLET (FP) PO SCH ×2 (10:59→22:02)
[2019-02-27] MEDS: PRENATAL VITAMINS W/ FOLIC ACID TABLET (FP) PO SCH (10:59)
[2019-02-27] MEDS: GABAPENTIN 300 MG CAPSULE (FP) PO SCH ×2 (10:59→22:03)
[2019-02-27] MEDS: ASPIRIN 81 MG CHEWABLE TABLETS PO SCH (10:59)
[2019-02-27] MEDS: BENZOCAINE 20 % GEL TUBE MM SCH ×3 (11:00→22:01)
[2019-02-27] MEDS: NIFEdipine E.R. 90 MG TABLET (FP) PO SCH (11:00)
[2019-02-27] MEDS: TACROLIMUS ANHYDROUS 1 MG CAPSULE PO SCH ×2 (11:01→22:05)
[2019-02-27] MEDS: predniSONE 1 MG TABLET (FP) PO SCH (11:02)
[2019-02-27] MEDS: MYCOPHENOLATE MOFETIL 500 MG TABLET PO SCH ×2 (11:02→22:02)
[2019-02-27] MEDS: hydrOXYzine PAMOATE 50 MG CAPSULE (FP) PO PRN ×3 (11:03→22:04)
[2019-02-27] MEDS ORDERED: HYDROCORTISONE 1% TOPICAL CREAM 30 GM TUBE TP PRN (21:41)
[2019-02-27] MEDS: INSULIN (LEVEMIR) 100 UNITS/ML UNITS SQ SCH (22:01)
[2019-02-27] MEDS: MIRTAZAPINE 30 MG TABLET (FP) PO SCH (22:03)
[2019-02-27] MEDS: METHOCARBAMOL 500 MG TABLET PO PRN (22:04)
[2019-02-27] MEDS: THIAMINE HCL 100 MG TABLET (FP) PO SCH (22:04)
--- NOTE | 2019-02-28 01:00 | PN ---
[facility] Progress Note Note: Saw patient earlier this evening who was c/o pain in (R) great toe and foot. States hx of gout, but unsure of which medication was taking. Attempted to contact pharmacy, which was closed. Patient w/ extremely protruberant, heavy abdomen pressing on upper legs and femoral area. Pedal pulses (+). Bilateral edema, toes to mid calf. Calf and ankle measurement equal. Transmetatarsal (R) 1 cm larger than (L). (R) great toe w/larger than (L) and tender to touch. Encourage to elevate legs. Patient on Tacrolimus, and no recent levels obtained. Blood levels ordered to r /o side effects of possible toxicity. Hydrocotisone to (R) foot to for possible comfort measure.
[2019-02-28] MEDS: BENZOCAINE 20 % GEL TUBE MM SCH ×4 (04:15→22:00)
[2019-02-28] MEDS: ACETAMINOPHEN 325 MG TABLET (FP) PO PRN ×3 (06:19→20:05)
[2019-02-28] MEDS: hydrOXYzine PAMOATE 50 MG CAPSULE (FP) PO PRN ×2 (06:19→17:00)
[2019-02-28] MEDS: INSULIN (NOVOLOG) ASPART 100 UNITS/ML 10ML VIAL SQ SCH ×3 (06:21→16:30)
[2019-02-28] MEDS: predniSONE 1 MG TABLET (FP) PO SCH (10:30)
[2019-02-28] MEDS: ASPIRIN 81 MG CHEWABLE TABLETS PO SCH (10:31)
[2019-02-28] MEDS: hydrALAZINE HCL 50 MG TABLET (FP) PO SCH ×2 (10:32→22:01)
[2019-02-28] MEDS: PRENATAL VITAMINS W/ FOLIC ACID TABLET (FP) PO SCH (10:32)
[2019-02-28] MEDS: GABAPENTIN 300 MG CAPSULE (FP) PO SCH ×2 (10:32→22:03)
[2019-02-28] MEDS: TACROLIMUS ANHYDROUS 1 MG CAPSULE PO SCH ×2 (10:33→22:03)
[2019-02-28] MEDS: NIFEdipine E.R. 90 MG TABLET (FP) PO SCH (10:33)
[2019-02-28] MEDS: MYCOPHENOLATE MOFETIL 500 MG TABLET PO SCH ×2 (10:34→22:03)
[2019-02-28] MEDS: METHOCARBAMOL 500 MG TABLET PO PRN (10:38)
[2019-02-28] MEDS ORDERED: INSULIN (NOVOLOG) ASPART 100 UNITS/ML 10ML VIAL ONE (12:08)
[2019-02-28] MEDS: COLCHICINE 0.6 MG CAP PO PRN ×2 (14:57→17:00)
--- NOTE | 2019-02-28 19:22 | PN ---
S Progress Note Note: Pt with c/o right toe and leg pain. Pt Reports Gout flare and takes Colchicine 0-6 mg po BID as needed. 02/28/19 10:43 - Nursing Note by Caitlin Mcallister [facility] Num: [id number] : 1960 Patient Age: 58 Pt informed primary RN Gricel Mcallister that he is "in a lot of pain and was taking something for my gout pain "in the past but couldn't remember the name. Pt insisted that senior underwriter call his pharmacy to get the name of the medication he was taking. Form Carpenter called [facility] and spoke with Pharmacist Pastor and was informed that pt had one prescription filled their on 09/2017 for Colchicine 0.6mg po q6-8 hrs PRN for gout pain. Home medication list updated and WAITER/WAITRESS CAFETERIA Eleazar notified. Staff will f/u. Initialized on 02/28/19 10:43 - END OF NOTE Vital Signs - 24 hr 02/27/19 02/28/19 02/28/19 21:12 00:30 03:30 Temperature Pulse Rate 83 Respiratory 18 18 18 Rate Blood Pressure 149/87 02/28/19 02/28/19 07:09 09:41 Temperature 97.3 F L Pulse Rate 86 90 Respiratory 18 Rate Blood Pressure 149/93 151/96 Laboratory Tests 02/07/19 02/07/19 02/08/19 19:51 21:55 05:56 WBC RBC Hgb Hct MCV MCH MCHC RDW Plt Count MPV Sodium Potassium Chloride Carbon Dioxide Anion Gap BUN Creatinine Est GFR (CKD-EPI)AfAm Est GFR (CKD-EPI)NonAf POC Glucometer [phone] Random Glucose Calcium Total Bilirubin AST ALT Alkaline Phosphatase Total Protein Albumin RPR Titer TB (QFT) Incubation TB Test (QFT) Nil TB Test (QFT) Mitogen TB Test (QFT) Antigen TB Test (QFT) TB Positive Criteria 02/08/19 02/08/19 02/08/19 08:00 08:00 08:00 WBC 6.9 RBC 4.43 Hgb 14.0 Hct 41.8 MCV 94.3 MCH 31.5 MCHC 33.4 RDW 13.5 Plt Count 300 MPV 9.1 Sodium 137 Potassium 4.5 Chloride 102 Carbon Dioxide 27 Anion Gap 8 BUN 23.5 H Creatinine 1.7 H Est GFR (CKD-EPI)AfAm 50.40 Est GFR (CKD-EPI)NonAf 43.49 POC Glucometer Random Glucose 311 H Calcium 9.3 Total Bilirubin 0.6 AST 34 ALT 54 Alkaline Phosphatase 121 H Total Protein 6.7 Albumin 3.6 RPR Titer Nonreactive TB (QFT) Incubation TB Test (QFT) Nil TB Test (QFT) Mitogen TB Test (QFT) Antigen TB Test (QFT) TB Positive Criteria 02/08/19 02/08/19 02/08/19 08:00 10:02 16:45 WBC RBC Hgb Hct MCV MCH MCHC RDW Plt Count MPV Sodium Potassium Chloride Carbon Dioxide Anion Gap BUN Creatinine Est GFR (CKD-EPI)AfAm Est GFR (CKD-EPI)NonAf POC Glucometer [phone] Random Glucose Calcium Total Bilirubin AST ALT Alkaline Phosphatase Total Protein Albumin RPR Titer TB (QFT) Incubation TB Test (QFT) Nil 0.03 TB Test (QFT) Mitogen >10.00 TB Test (QFT) Antigen 0.04 TB Test (QFT) Negative TB Positive Criteria 02/08/19 02/09/19 02/09/19 20:34 05:42 10:16 WBC RBC Hgb Hct MCV MCH MCHC RDW Plt Count MPV Sodium 138 Potassium 4.3 Chloride 100 Carbon Dioxide 31 Anion Gap 7 L BUN 16.4 Creatinine 1.7 H Est GFR (CKD-EPI)AfAm 50.40 Est GFR (CKD-EPI)NonAf 43.49 POC Glucometer 441 382 Random Glucose 425 H* Calcium 10.2 H Total Bilirubin AST ALT Alkaline Phosphatase Total Protein Albumin RPR Titer TB (QFT) Incubation TB Test (QFT) Nil TB Test (QFT) Mitogen TB Test (QFT) Antigen TB Test (QFT) TB Positive Criteria 02/09/19 02/09/19 02/09/19 11:38 16:21 22:06 WBC RBC Hgb Hct MCV MCH MCHC RDW Plt Count MPV Sodium Potassium Chloride Carbon Dioxide Anion Gap BUN Creatinine Est GFR (CKD-EPI)AfAm Est GFR (CKD-EPI)NonAf POC Glucometer [phone] Random Glucose Calcium Total Bilirubin AST ALT Alkaline Phosphatase Total Protein Albumin RPR Titer TB (QFT) Incubation TB Test (QFT) Nil TB Test (QFT) Mitogen TB Test (QFT) Antigen TB Test (QFT) TB Positive Criteria 02/10/19 02/10/19 02/10/19 05:41 09:32 16:23 WBC RBC Hgb Hct MCV MCH MCHC RDW Plt Count MPV Sodium Potassium Chloride Carbon Dioxide Anion Gap BUN Creatinine Est GFR (CKD-EPI)AfAm Est GFR (CKD-EPI)NonAf POC Glucometer [phone] Random Glucose Calcium Total Bilirubin AST ALT Alkaline Phosphatase Total Protein Albumin RPR Titer TB (QFT) Incubation TB Test (QFT) Nil TB Test (QFT) Mitogen TB Test (QFT) Antigen TB Test (QFT) TB Positive Criteria 02/10/19 02/11/19 02/11/19 21:34 06:12 10:07 WBC RBC Hgb Hct MCV MCH MCHC RDW Plt Count MPV Sodium Potassium Chloride Carbon Dioxide Anion Gap BUN Creatinine Est GFR (CKD-EPI)AfAm Est GFR (CKD-EPI)NonAf POC Glucometer [phone] Random Glucose Calcium Total Bilirubin AST ALT Alkaline Phosphatase Total Protein Albumin RPR Titer TB (QFT) Incubation TB Test (QFT) Nil TB Test (QFT) Mitogen TB Test (QFT) Antigen TB Test (QFT) TB Positive Criteria 02/11/19 02/11/19 02/12/19 16:40 21:58 05:53 WBC RBC Hgb Hct MCV MCH MCHC RDW Plt Count MPV Sodium Potassium Chloride Carbon Dioxide Anion Gap BUN Creatinine Est GFR (CKD-EPI)AfAm Est GFR (CKD-EPI)NonAf POC Glucometer [phone] Random Glucose Calcium Total Bilirubin AST ALT Alkaline Phosphatase Total Protein Albumin RPR Titer TB (QFT) Incubation TB Test (QFT) Nil TB Test (QFT) Mitogen TB Test (QFT) Antigen TB Test (QFT) TB Positive Criteria 02/12/19 02/12/19 02/12/19 11:17 16:14 21:42 WBC RBC Hgb Hct MCV MCH MCHC RDW Plt Count MPV Sodium Potassium Chloride Carbon Dioxide Anion Gap BUN Creatinine Est GFR (CKD-EPI)AfAm Est GFR (CKD-EPI)NonAf POC Glucometer [phone] Random Glucose Calcium Total Bilirubin AST ALT Alkaline Phosphatase Total Protein Albumin RPR Titer TB (QFT) Incubation TB Test (QFT) Nil TB Test (QFT) Mitogen TB Test (QFT) Antigen TB Test (QFT) TB Positive Criteria 02/13/19 02/13/19 02/13/19 05:04 11:52 16:53 WBC RBC Hgb Hct MCV MCH MCHC RDW Plt Count MPV Sodium Potassium Chloride Carbon Dioxide Anion Gap BUN Creatinine Est GFR (CKD-EPI)AfAm Est GFR (CKD-EPI)NonAf POC Glucometer [phone] Random Glucose Calcium Total Bilirubin AST ALT Alkaline Phosphatase Total Protein Albumin RPR Titer TB (QFT) Incubation TB Test (QFT) Nil TB Test (QFT) Mitogen TB Test (QFT) Antigen TB Test (QFT) TB Positive Criteria 02/13/19 02/14/19 02/14/19 21:05 06:24 12:00 WBC RBC Hgb Hct MCV MCH MCHC RDW Plt Count MPV Sodium Potassium Chloride Carbon Dioxide Anion Gap BUN Creatinine Est GFR (CKD-EPI)AfAm Est GFR (CKD-EPI)NonAf POC Glucometer [phone] Random Glucose Calcium Total Bilirubin AST ALT Alkaline Phosphatase Total Protein Albumin RPR Titer TB (QFT) Incubation TB Test (QFT) Nil TB Test (QFT) Mitogen TB Test (QFT) Antigen TB Test (QFT) TB Positive Criteria 02/14/19 02/14/19 02/15/19 16:46 20:41 06:18 WBC RBC Hgb Hct MCV MCH MCHC RDW Plt Count MPV Sodium Potassium Chloride Carbon Dioxide Anion Gap BUN Creatinine Est GFR (CKD-EPI)AfAm Est GFR (CKD-EPI)NonAf POC Glucometer [phone] Random Glucose Calcium Total Bilirubin AST ALT Alkaline Phosphatase Total Protein Albumin RPR Titer TB (QFT) Incubation TB Test (QFT) Nil TB Test (QFT) Mitogen TB Test (QFT) Antigen TB Test (QFT) TB Positive Criteria 02/15/19 02/15/19 02/15/19 12:07 17:07 21:57 WBC RBC Hgb Hct MCV MCH MCHC RDW Plt Count MPV Sodium Potassium Chloride Carbon Dioxide Anion Gap BUN Creatinine Est GFR (CKD-EPI)AfAm Est GFR (CKD-EPI)NonAf POC Glucometer [phone] Random Glucose Calcium Total Bilirubin AST ALT Alkaline Phosphatase Total Protein Albumin RPR Titer TB (QFT) Incubation TB Test (QFT) Nil TB Test (QFT) Mitogen TB Test (QFT) Antigen TB Test (QFT) TB Positive Criteria 02/16/19 02/16/19 02/16/19 06:21 11:58 16:44 WBC RBC Hgb Hct MCV MCH MCHC RDW Plt Count MPV Sodium Potassium Chloride Carbon Dioxide Anion Gap BUN Creatinine Est GFR (CKD-EPI)AfAm Est GFR (CKD-EPI)NonAf POC Glucometer [phone] Random Glucose Calcium Total Bilirubin AST ALT Alkaline Phosphatase Total Protein Albumin RPR Titer TB (QFT) Incubation TB Test (QFT) Nil TB Test (QFT) Mitogen TB Test (QFT) Antigen TB Test (QFT) TB Positive Criteria 02/16/19 02/17/19 02/17/19 20:46 06:28 11:46 WBC RBC Hgb Hct MCV MCH MCHC RDW Plt Count MPV Sodium Potassium Chloride Carbon Dioxide Anion Gap BUN Creatinine Est GFR (CKD-EPI)AfAm Est GFR (CKD-EPI)NonAf POC Glucometer [phone] Random Glucose Calcium Total Bilirubin AST ALT Alkaline Phosphatase Total Protein Albumin RPR Titer TB (QFT) Incubation TB Test (QFT) Nil TB Test (QFT) Mitogen TB Test (QFT) Antigen TB Test (QFT) TB Positive Criteria 02/17/19 02/17/19 02/18/19 16:55 22:10 06:48 WBC RBC Hgb Hct MCV MCH MCHC RDW Plt Count MPV Sodium Potassium Chloride Carbon Dioxide Anion Gap BUN Creatinine Est GFR (CKD-EPI)AfAm Est GFR (CKD-EPI)NonAf POC Glucometer [phone] Random Glucose Calcium Total Bilirubin AST ALT Alkaline Phosphatase Total Protein Albumin RPR Titer TB (QFT) Incubation TB Test (QFT) Nil TB Test (QFT) Mitogen TB Test (QFT) Antigen TB Test (QFT) TB Positive Criteria 02/18/19 02/18/19 02/18/19 11:48 16:35 21:51 WBC RBC Hgb Hct MCV MCH MCHC RDW Plt Count MPV Sodium Potassium Chloride Carbon Dioxide Anion Gap BUN Creatinine Est GFR (CKD-EPI)AfAm Est GFR (CKD-EPI)NonAf POC Glucometer [phone] Random Glucose Calcium Total Bilirubin AST ALT Alkaline Phosphatase Total Protein Albumin RPR Titer TB (QFT) Incubation TB Test (QFT) Nil TB Test (QFT) Mitogen TB Test (QFT) Antigen TB Test (QFT) TB Positive Criteria 02/19/19 02/19/19 02/19/19 06:31 11:54 16:58 WBC RBC Hgb Hct MCV MCH MCHC RDW Plt Count MPV Sodium Potassium Chloride Carbon Dioxide Anion Gap BUN Creatinine Est GFR (CKD-EPI)AfAm Est GFR (CKD-EPI)NonAf POC Glucometer [phone] Random Glucose Calcium Total Bilirubin AST ALT Alkaline Phosphatase Total Protein Albumin RPR Titer TB (QFT) Incubation TB Test (QFT) Nil TB Test (QFT) Mitogen TB Test (QFT) Antigen TB Test (QFT) TB Positive Criteria 02/19/19 02/20/19 02/20/19 20:45 06:38 11:45 WBC RBC Hgb Hct MCV MCH MCHC RDW Plt Count MPV Sodium Potassium Chloride Carbon Dioxide Anion Gap BUN Creatinine Est GFR (CKD-EPI)AfAm Est GFR (CKD-EPI)NonAf POC Glucometer [phone] Random Glucose Calcium Total Bilirubin AST ALT Alkaline Phosphatase Total Protein Albumin RPR Titer TB (QFT) Incubation TB Test (QFT) Nil TB Test (QFT) Mitogen TB Test (QFT) Antigen TB Test (QFT) TB Positive Criteria 02/20/19 02/20/19 02/21/19 16:45 20:38 06:27 WBC RBC Hgb Hct MCV MCH MCHC RDW Plt Count MPV Sodium Potassium Chloride Carbon Dioxide Anion Gap BUN Creatinine Est GFR (CKD-EPI)AfAm Est GFR (CKD-EPI)NonAf POC Glucometer [phone] Random Glucose Calcium Total Bilirubin AST ALT Alkaline Phosphatase Total Protein Albumin RPR Titer TB (QFT) Incubation TB Test (QFT) Nil TB Test (QFT) Mitogen TB Test (QFT) Antigen TB Test (QFT) TB Positive Criteria 02/21/19 02/21/19 02/21/19 11:51 12:52 16:32 WBC RBC Hgb Hct MCV MCH MCHC RDW Plt Count MPV Sodium Potassium Chloride Carbon Dioxide Anion Gap BUN Creatinine Est GFR (CKD-EPI)AfAm Est GFR (CKD-EPI)NonAf POC Glucometer [phone] Random Glucose Calcium Total Bilirubin AST ALT Alkaline Phosphatase Total Protein Albumin RPR Titer TB (QFT) Incubation TB Test (QFT) Nil TB Test (QFT) Mitogen TB Test (QFT) Antigen TB Test (QFT) TB Positive Criteria 02/21/19 02/22/19 02/22/19 20:43 06:20 12:20 WBC RBC Hgb Hct MCV MCH MCHC RDW Plt Count MPV Sodium Potassium Chloride Carbon Dioxide Anion Gap BUN Creatinine Est GFR (CKD-EPI)AfAm Est GFR (CKD-EPI)NonAf POC Glucometer [phone] Random Glucose Calcium Total Bilirubin AST ALT Alkaline Phosphatase Total Protein Albumin RPR Titer TB (QFT) Incubation TB Test (QFT) Nil TB Test (QFT) Mitogen TB Test (QFT) Antigen TB Test (QFT) TB Positive Criteria 02/22/19 02/22/19 02/23/19 16:49 20:40 06:43 WBC RBC Hgb Hct MCV MCH MCHC RDW Plt Count MPV Sodium Potassium Chloride Carbon Dioxide Anion Gap BUN Creatinine Est GFR (CKD-EPI)AfAm Est GFR (CKD-EPI)NonAf POC Glucometer [phone] Random Glucose Calcium Total Bilirubin AST ALT Alkaline Phosphatase Total Protein Albumin RPR Titer TB (QFT) Incubation TB Test (QFT) Nil TB Test (QFT) Mitogen TB Test (QFT) Antigen TB Test (QFT) TB Positive Criteria 02/23/19 02/23/19 02/23/19 11:36 16:42 21:40 WBC RBC Hgb Hct MCV MCH MCHC RDW Plt Count MPV Sodium Potassium Chloride Carbon Dioxide Anion Gap BUN Creatinine Est GFR (CKD-EPI)AfAm Est GFR (CKD-EPI)NonAf POC Glucometer [phone] Random Glucose Calcium Total Bilirubin AST ALT Alkaline Phosphatase Total Protein Albumin RPR Titer TB (QFT) Incubation TB Test (QFT) Nil TB Test (QFT) Mitogen TB Test (QFT) Antigen TB Test (QFT) TB Positive Criteria 02/24/19 02/24/19 02/24/19 06:25 11:50 16:50 WBC RBC Hgb Hct MCV MCH MCHC RDW Plt Count MPV Sodium Potassium Chloride Carbon Dioxide Anion Gap BUN Creatinine Est GFR (CKD-EPI)AfAm Est GFR (CKD-EPI)NonAf POC Glucometer [phone] Random Glucose Calcium Total Bilirubin AST ALT Alkaline Phosphatase Total Protein Albumin RPR Titer TB (QFT) Incubation TB Test (QFT) Nil TB Test (QFT) Mitogen TB Test (QFT) Antigen TB Test (QFT) TB Positive Criteria 02/24/19 02/25/19 02/25/19 20:37 06:16 10:57 WBC RBC Hgb Hct MCV MCH MCHC RDW Plt Count MPV Sodium Potassium Chloride Carbon Dioxide Anion Gap BUN Creatinine Est GFR (CKD-EPI)AfAm Est GFR (CKD-EPI)NonAf POC Glucometer [phone] Random Glucose Calcium Total Bilirubin AST ALT Alkaline Phosphatase Total Protein Albumin RPR Titer TB (QFT) Incubation TB Test (QFT) Nil TB Test (QFT) Mitogen TB Test (QFT) Antigen TB Test (QFT) TB Positive Criteria 02/25/19 02/25/19 02/26/19 16:57 21:58 06:18 WBC RBC Hgb Hct MCV MCH MCHC RDW Plt Count MPV Sodium Potassium Chloride Carbon Dioxide Anion Gap BUN Creatinine Est GFR (CKD-EPI)AfAm Est GFR (CKD-EPI)NonAf POC Glucometer [phone] Random Glucose Calcium Total Bilirubin AST ALT Alkaline Phosphatase Total Protein Albumin RPR Titer TB (QFT) Incubation TB Test (QFT) Nil TB Test (QFT) Mitogen TB Test (QFT) Antigen TB Test (QFT) TB Positive Criteria 02/26/19 02/26/19 02/26/19 11:40 16:39 20:36 WBC RBC Hgb Hct MCV MCH MCHC RDW Plt Count MPV Sodium Potassium Chloride Carbon Dioxide Anion Gap BUN Creatinine Est GFR (CKD-EPI)AfAm Est GFR (CKD-EPI)NonAf POC Glucometer [phone] Random Glucose Calcium Total Bilirubin AST ALT Alkaline Phosphatase Total Protein Albumin RPR Titer TB (QFT) Incubation TB Test (QFT) Nil TB Test (QFT) Mitogen TB Test (QFT) Antigen TB Test (QFT) TB Positive Criteria 02/27/19 02/27/19 02/27/19 06:33 11:50 16:45 WBC RBC Hgb Hct MCV MCH MCHC RDW Plt Count MPV Sodium Potassium Chloride Carbon Dioxide Anion Gap BUN Creatinine Est GFR (CKD-EPI)AfAm Est GFR (CKD-EPI)NonAf POC Glucometer [phone] Random Glucose Calcium Total Bilirubin AST ALT Alkaline Phosphatase Total Protein Albumin RPR Titer TB (QFT) Incubation TB Test (QFT) Nil TB Test (QFT) Mitogen TB Test (QFT) Antigen TB Test (QFT) TB Positive Criteria 02/27/19 02/28/19 02/28/19 20:38 06:17 12:03 WBC RBC Hgb Hct MCV MCH MCHC RDW Plt Count MPV Sodium Potassium Chloride Carbon Dioxide Anion Gap BUN Creatinine Est GFR (CKD-EPI)AfAm Est GFR (CKD-EPI)NonAf POC Glucometer [phone] Random Glucose Calcium Total Bilirubin AST ALT Alkaline Phosphatase Total Protein Albumin RPR Titer TB (QFT) Incubation TB Test (QFT) Nil TB Test (QFT) Mitogen TB Test (QFT) Antigen TB Test (QFT) TB Positive Criteria 02/28/19 16:28 WBC RBC Hgb Hct MCV MCH MCHC RDW Plt Count MPV Sodium Potassium Chloride Carbon Dioxide Anion Gap BUN Creatinine Est GFR (CKD-EPI)AfAm Est GFR (CKD-EPI)NonAf POC Glucometer 408 Random Glucose Calcium Total Bilirubin AST ALT Alkaline Phosphatase Total Protein Albumin RPR Titer TB (QFT) Incubation TB Test (QFT) Nil TB Test (QFT) Mitogen TB Test (QFT) Antigen TB Test (QFT) TB Positive Criteria Right foot and toe swelling and redness, painful to touch. A/P Hx Gout Gout flare up D/w pt will Restart Colchicine 0.6 mg po daily pt is agreeable to poc
[2019-02-28] MEDS: INSULIN (LEVEMIR) 100 UNITS/ML UNITS SQ SCH (22:00)
[2019-02-28] MEDS: MIRTAZAPINE 30 MG TABLET (FP) PO SCH (22:04)
[2019-02-28] MEDS: THIAMINE HCL 100 MG TABLET (FP) PO SCH (22:04)
[2019-03-01] MEDS: ACETAMINOPHEN 325 MG TABLET (FP) PO PRN ×3 (06:43→19:34)
[2019-03-01] MEDS: hydrOXYzine PAMOATE 50 MG CAPSULE (FP) PO PRN ×3 (06:43→19:34)
[2019-03-01] MEDS: BENZOCAINE 20 % GEL TUBE MM SCH ×4 (07:07→22:05)
[2019-03-01] MEDS: INSULIN (NOVOLOG) ASPART 100 UNITS/ML 10ML VIAL SQ SCH ×3 (07:08→16:34)
[2019-03-01] MEDS ORDERED: COLCHICINE 0.6 MG CAP PO PRN (10:00)
[2019-03-01] MEDS: COLCHICINE 0.6 MG CAP PO PRN ×3 (10:31→19:35)
[2019-03-01] MEDS: predniSONE 1 MG TABLET (FP) PO SCH (10:45)
[2019-03-01] MEDS: TACROLIMUS ANHYDROUS 1 MG CAPSULE PO SCH ×2 (10:46→22:08)
[2019-03-01] MEDS: MYCOPHENOLATE MOFETIL 500 MG TABLET PO SCH ×2 (10:47→22:06)
[2019-03-01] MEDS: hydrALAZINE HCL 50 MG TABLET (FP) PO SCH ×2 (10:47→22:06)
[2019-03-01] MEDS: GABAPENTIN 300 MG CAPSULE (FP) PO SCH ×2 (10:47→22:07)
[2019-03-01] MEDS: NIFEdipine E.R. 90 MG TABLET (FP) PO SCH (10:47)
[2019-03-01] MEDS: PRENATAL VITAMINS W/ FOLIC ACID TABLET (FP) PO SCH (10:47)
[2019-03-01] MEDS: ASPIRIN 81 MG CHEWABLE TABLETS PO SCH (10:48)
[2019-03-01 10:53] LABS: BLOOD UREA NITROGEN 16.4 mg/dL (7-18); CREATININE 1.5 mg/dL (0.55-1.3)
--- NOTE | 2019-03-01 12:23 | PN ---
[facility] Progress Note Note: Patient is scheduled for discharge tomorrow. Script for 30 days supply of Remeron 30 mg/hs will be electronically transmitted to [facility] at [address] [place] [id number]
--- NOTE | 2019-03-01 12:38 | PN ---
[facility] Progress Note Note: This medical underwriter called pt's pharmacy [facility] @ this morning and spoke to Shayna Baumann who confirmed Rx for Colchicine to "take Colchicine 0.6 mg po 6-8 hrs po daily prn" per pt's prescriber. Pt is appears to know his medications but still not sure of some . Also called and spoke to pt 's primary care provider Dr. Kellogg at with pt on three way call. pt has not been following up with his medical care as confirmed by this doctor. Last saw this doctor in September of 2018 per doctor. Appointment was made with the operator receptionist for patient to follow up with this PMD on 03/05/19 at 3:30 p.m. Pt will also make follow up appointments with his Kidney doctor after seeing his primary care provider. Dr. Kellogg agreed to take care of pt 's Rx and refills and pt will not need any courtesy Rx from [facility]. However pt mentioned to his doctor's listening that he has his medications at home. Vital Signs - 24 hr 02/28/19 03/01/19 03/01/19 21:10 00:30 03:30 Temperature Pulse Rate 83 Respiratory 18 18 Rate Blood Pressure 151/102 H 03/01/19 07:20 Temperature 97.8 F Pulse Rate 85 Respiratory 17 Rate Blood Pressure 124/93 pt to continue colchicine as ordered. follow up with primary care doctor Dr. Kellogg after discharge on 03/05/19 at 3:[address] kellogg and patient have agreed to this appointment time.
[2019-03-01] MEDS ORDERED: CYCLOBENZAPRINE HCL 10 MG TABLET (FP) PO PRN (13:24)
[2019-03-01] MEDS: CYCLOBENZAPRINE HCL 10 MG TABLET (FP) PO PRN ×3 (14:57→22:11)
[2019-03-01] MEDS: INSULIN SLIDING SCALE (NOVOLOG) 1 VIAL SQ SCH ×2 (16:33→22:13)
[2019-03-01] MEDS: MIRTAZAPINE 30 MG TABLET (FP) PO SCH (22:09)
[2019-03-01] MEDS: THIAMINE HCL 100 MG TABLET (FP) PO SCH (22:09)
[2019-03-01] MEDS: MELATONIN 5 MG TABLETS PO PRN (22:09)
[2019-03-01] MEDS: INSULIN (LEVEMIR) 100 UNITS/ML UNITS SQ SCH (22:12)
[2019-03-02] MEDS: BENZOCAINE 20 % GEL TUBE MM SCH ×2 (03:26→09:23)
[2019-03-02] MEDS: hydrOXYzine PAMOATE 50 MG CAPSULE (FP) PO PRN (06:08)
[2019-03-02] MEDS: CYCLOBENZAPRINE HCL 10 MG TABLET (FP) PO PRN (06:08)
[2019-03-02 06:50] VITALS: TEMP 97.3
[2019-03-02] MEDS ORDERED: INSULIN (NOVOLOG) ASPART 100 UNITS/ML 10ML VIAL ONE (07:15)
[2019-03-02] MEDS: INSULIN (NOVOLOG) ASPART 100 UNITS/ML 10ML VIAL SQ SCH (07:22)
[2019-03-02] MEDS: INSULIN SLIDING SCALE (NOVOLOG) 1 VIAL SQ SCH (07:23)
--- NOTE | 2019-03-02 08:40 | DS ---
[facility] Rehab Discharge Summary - [facility] Rehab Discharge Summary Admission Date: 02/07/19 Discharge Date: 03/02/19 - History Present History: Alcohol dependence, Cocaine dependence, Opioid dependence (Rx oxycodone) Additional Comments: Pt is a 58 y/o male admitted to rehab for substance use disorder and discharged today after completion. Pt met with his counselor and has been referred to [facility] for CD aftercare. Pt has also been instructed by this provider to follow up with his primary care provider for medical management. Pertinent Past History: HTN DM Gout CKD Hx Kdney transplant Mood disorder - Discharge Physical Exam Vital Signs: Vital Signs Temperature 97.3 F L 03/02/19 06:49 Pulse Rate 73 03/02/19 06:49 Respiratory Rate 20 03/02/19 06:49 Blood Pressure 152/91 03/02/19 06:49 O2 Sat by Pulse Oximetry (%) Alert o x 3 nad oob ambulating with steady gait cardiac:s1 s2,rrr lung:cta,anna. Abdomen:soft,+bs,nt,nd Extremities/Skin:Swelling to right lower leg/foot/great toe-gout flare, skin intact. Pertinent Admission Physical Exam Findings: Laboratory Tests 02/07/19 02/07/19 02/08/19 19:51 21:55 05:56 WBC RBC Hgb Hct MCV MCH MCHC RDW Plt Count MPV Sodium Potassium Chloride Carbon Dioxide Anion Gap BUN Creatinine Est GFR (CKD-EPI)AfAm Est GFR (CKD-EPI)NonAf POC Glucometer [phone] Random Glucose Calcium Total Bilirubin AST ALT Alkaline Phosphatase Total Protein Albumin RPR Titer TB (QFT) Incubation TB Test (QFT) Nil TB Test (QFT) Mitogen TB Test (QFT) Antigen TB Test (QFT) TB Positive Criteria 02/08/19 02/08/19 02/08/19 08:00 08:00 08:00 WBC 6.9 RBC 4.43 Hgb 14.0 Hct 41.8 MCV 94.3 MCH 31.5 MCHC 33.4 RDW 13.5 Plt Count 300 MPV 9.1 Sodium 137 Potassium 4.5 Chloride 102 Carbon Dioxide 27 Anion Gap 8 BUN 23.5 H Creatinine 1.7 H Est GFR (CKD-EPI)AfAm 50.40 Est GFR (CKD-EPI)NonAf 43.49 POC Glucometer Random Glucose 311 H Calcium 9.3 Total Bilirubin 0.6 AST 34 ALT 54 Alkaline Phosphatase 121 H Total Protein 6.7 Albumin 3.6 RPR Titer Nonreactive TB (QFT) Incubation TB Test (QFT) Nil TB Test (QFT) Mitogen TB Test (QFT) Antigen TB Test (QFT) TB Positive Criteria 02/08/19 02/08/19 02/08/19 08:00 10:02 16:45 WBC RBC Hgb Hct MCV MCH MCHC RDW Plt Count MPV Sodium Potassium Chloride Carbon Dioxide Anion Gap BUN Creatinine Est GFR (CKD-EPI)AfAm Est GFR (CKD-EPI)NonAf POC Glucometer [phone] Random Glucose Calcium Total Bilirubin AST ALT Alkaline Phosphatase Total Protein Albumin RPR Titer TB (QFT) Incubation TB Test (QFT) Nil 0.03 TB Test (QFT) Mitogen >10.00 TB Test (QFT) Antigen 0.04 TB Test (QFT) Negative TB Positive Criteria 02/08/19 02/09/19 02/09/19 20:34 05:42 10:16 WBC RBC Hgb Hct MCV MCH MCHC RDW Plt Count MPV Sodium 138 Potassium 4.3 Chloride 100 Carbon Dioxide 31 Anion Gap 7 L BUN 16.4 Creatinine 1.7 H Est GFR (CKD-EPI)AfAm 50.40 Est GFR (CKD-EPI)NonAf 43.49 POC Glucometer 441 382 Random Glucose 425 H* Calcium 10.2 H Total Bilirubin AST ALT Alkaline Phosphatase Total Protein Albumin RPR Titer TB (QFT) Incubation TB Test (QFT) Nil TB Test (QFT) Mitogen TB Test (QFT) Antigen TB Test (QFT) TB Positive Criteria 02/09/19 02/09/19 02/09/19 11:38 16:21 22:06 WBC RBC Hgb Hct MCV MCH MCHC RDW Plt Count MPV Sodium Potassium Chloride Carbon Dioxide Anion Gap BUN Creatinine Est GFR (CKD-EPI)AfAm Est GFR (CKD-EPI)NonAf POC Glucometer [phone] Random Glucose Calcium Total Bilirubin AST ALT Alkaline Phosphatase Total Protein Albumin RPR Titer TB (QFT) Incubation TB Test (QFT) Nil TB Test (QFT) Mitogen TB Test (QFT) Antigen TB Test (QFT) TB Positive Criteria 02/10/19 02/10/19 02/10/19 05:41 09:32 16:23 WBC RBC Hgb Hct MCV MCH MCHC RDW Plt Count MPV Sodium Potassium Chloride Carbon Dioxide Anion Gap BUN Creatinine Est GFR (CKD-EPI)AfAm Est GFR (CKD-EPI)NonAf POC Glucometer [phone] Random Glucose Calcium Total Bilirubin AST ALT Alkaline Phosphatase Total Protein Albumin RPR Titer TB (QFT) Incubation TB Test (QFT) Nil TB Test (QFT) Mitogen TB Test (QFT) Antigen TB Test (QFT) TB Positive Criteria 02/10/19 02/11/19 02/11/19 21:34 06:12 10:07 WBC RBC Hgb Hct MCV MCH MCHC RDW Plt Count MPV Sodium Potassium Chloride Carbon Dioxide Anion Gap BUN Creatinine Est GFR (CKD-EPI)AfAm Est GFR (CKD-EPI)NonAf POC Glucometer [phone] Random Glucose Calcium Total Bilirubin AST ALT Alkaline Phosphatase Total Protein Albumin RPR Titer TB (QFT) Incubation TB Test (QFT) Nil TB Test (QFT) Mitogen TB Test (QFT) Antigen TB Test (QFT) TB Positive Criteria 02/11/19 02/11/19 02/12/19 16:40 21:58 05:53 WBC RBC Hgb Hct MCV MCH MCHC RDW Plt Count MPV Sodium Potassium Chloride Carbon Dioxide Anion Gap BUN Creatinine Est GFR (CKD-EPI)AfAm Est GFR (CKD-EPI)NonAf POC Glucometer [phone] Random Glucose Calcium Total Bilirubin AST ALT Alkaline Phosphatase Total Protein Albumin RPR Titer TB (QFT) Incubation TB Test (QFT) Nil TB Test (QFT) Mitogen TB Test (QFT) Antigen TB Test (QFT) TB Positive Criteria 02/12/19 02/12/19 02/12/19 11:17 16:14 21:42 WBC RBC Hgb Hct MCV MCH MCHC RDW Plt Count MPV Sodium Potassium Chloride Carbon Dioxide Anion Gap BUN Creatinine Est GFR (CKD-EPI)AfAm Est GFR (CKD-EPI)NonAf POC Glucometer [phone] Random Glucose Calcium Total Bilirubin AST ALT Alkaline Phosphatase Total Protein Albumin RPR Titer TB (QFT) Incubation TB Test (QFT) Nil TB Test (QFT) Mitogen TB Test (QFT) Antigen TB Test (QFT) TB Positive Criteria 02/13/19 02/13/19 02/13/19 05:04 11:52 16:53 WBC RBC Hgb Hct MCV MCH MCHC RDW Plt Count MPV Sodium Potassium Chloride Carbon Dioxide Anion Gap BUN Creatinine Est GFR (CKD-EPI)AfAm Est GFR (CKD-EPI)NonAf POC Glucometer [phone] Random Glucose Calcium Total Bilirubin AST ALT Alkaline Phosphatase Total Protein Albumin RPR Titer TB (QFT) Incubation TB Test (QFT) Nil TB Test (QFT) Mitogen TB Test (QFT) Antigen TB Test (QFT) TB Positive Criteria 02/13/19 02/14/19 02/14/19 21:05 06:24 12:00 WBC RBC Hgb Hct MCV MCH MCHC RDW Plt Count MPV Sodium Potassium Chloride Carbon Dioxide Anion Gap BUN Creatinine Est GFR (CKD-EPI)AfAm Est GFR (CKD-EPI)NonAf POC Glucometer [phone] Random Glucose Calcium Total Bilirubin AST ALT Alkaline Phosphatase Total Protein Albumin RPR Titer TB (QFT) Incubation TB Test (QFT) Nil TB Test (QFT) Mitogen TB Test (QFT) Antigen TB Test (QFT) TB Positive Criteria 02/14/19 02/14/19 02/15/19 16:46 20:41 06:18 WBC RBC Hgb Hct MCV MCH MCHC RDW Plt Count MPV Sodium Potassium Chloride Carbon Dioxide Anion Gap BUN Creatinine Est GFR (CKD-EPI)AfAm Est GFR (CKD-EPI)NonAf POC Glucometer [phone] Random Glucose Calcium Total Bilirubin AST ALT Alkaline Phosphatase Total Protein Albumin RPR Titer TB (QFT) Incubation TB Test (QFT) Nil TB Test (QFT) Mitogen TB Test (QFT) Antigen TB Test (QFT) TB Positive Criteria 02/15/19 02/15/19 02/15/19 12:07 17:07 21:57 WBC RBC Hgb Hct MCV MCH MCHC RDW Plt Count MPV Sodium Potassium Chloride Carbon Dioxide Anion Gap BUN Creatinine Est GFR (CKD-EPI)AfAm Est GFR (CKD-EPI)NonAf POC Glucometer [phone] Random Glucose Calcium Total Bilirubin AST ALT Alkaline Phosphatase Total Protein Albumin RPR Titer TB (QFT) Incubation TB Test (QFT) Nil TB Test (QFT) Mitogen TB Test (QFT) Antigen TB Test (QFT) TB Positive Criteria 02/16/19 02/16/19 02/16/19 06:21 11:58 16:44 WBC RBC Hgb Hct MCV MCH MCHC RDW Plt Count MPV Sodium Potassium Chloride Carbon Dioxide Anion Gap BUN Creatinine Est GFR (CKD-EPI)AfAm Est GFR (CKD-EPI)NonAf POC Glucometer [phone] Random Glucose Calcium Total Bilirubin AST ALT Alkaline Phosphatase Total Protein Albumin RPR Titer TB (QFT) Incubation TB Test (QFT) Nil TB Test (QFT) Mitogen TB Test (QFT) Antigen TB Test (QFT) TB Positive Criteria 02/16/19 02/17/19 02/17/19 20:46 06:28 11:46 WBC RBC Hgb Hct MCV MCH MCHC RDW Plt Count MPV Sodium Potassium Chloride Carbon Dioxide Anion Gap BUN Creatinine Est GFR (CKD-EPI)AfAm Est GFR (CKD-EPI)NonAf POC Glucometer [phone] Random Glucose Calcium Total Bilirubin AST ALT Alkaline Phosphatase Total Protein Albumin RPR Titer TB (QFT) Incubation TB Test (QFT) Nil TB Test (QFT) Mitogen TB Test (QFT) Antigen TB Test (QFT) TB Positive Criteria 02/17/19 02/17/19 02/18/19 16:55 22:10 06:48 WBC RBC Hgb Hct MCV MCH MCHC RDW Plt Count MPV Sodium Potassium Chloride Carbon Dioxide Anion Gap BUN Creatinine Est GFR (CKD-EPI)AfAm Est GFR (CKD-EPI)NonAf POC Glucometer [phone] Random Glucose Calcium Total Bilirubin AST ALT Alkaline Phosphatase Total Protein Albumin RPR Titer TB (QFT) Incubation TB Test (QFT) Nil TB Test (QFT) Mitogen TB Test (QFT) Antigen TB Test (QFT) TB Positive Criteria 02/18/19 02/18/19 02/18/19 11:48 16:35 21:51 WBC RBC Hgb Hct MCV MCH MCHC RDW Plt Count MPV Sodium Potassium Chloride Carbon Dioxide Anion Gap BUN Creatinine Est GFR (CKD-EPI)AfAm Est GFR (CKD-EPI)NonAf POC Glucometer [phone] Random Glucose Calcium Total Bilirubin AST ALT Alkaline Phosphatase Total Protein Albumin RPR Titer TB (QFT) Incubation TB Test (QFT) Nil TB Test (QFT) Mitogen TB Test (QFT) Antigen TB Test (QFT) TB Positive Criteria 02/19/19 02/19/19 02/19/19 06:31 11:54 16:58 WBC RBC Hgb Hct MCV MCH MCHC RDW Plt Count MPV Sodium Potassium Chloride Carbon Dioxide Anion Gap BUN Creatinine Est GFR (CKD-EPI)AfAm Est GFR (CKD-EPI)NonAf POC Glucometer [phone] Random Glucose Calcium Total Bilirubin AST ALT Alkaline Phosphatase Total Protein Albumin RPR Titer TB (QFT) Incubation TB Test (QFT) Nil TB Test (QFT) Mitogen TB Test (QFT) Antigen TB Test (QFT) TB Positive Criteria 02/19/19 02/20/19 02/20/19 20:45 06:38 11:45 WBC RBC Hgb Hct MCV MCH MCHC RDW Plt Count MPV Sodium Potassium Chloride Carbon Dioxide Anion Gap BUN Creatinine Est GFR (CKD-EPI)AfAm Est GFR (CKD-EPI)NonAf POC Glucometer [phone] Random Glucose Calcium Total Bilirubin AST ALT Alkaline Phosphatase Total Protein Albumin RPR Titer TB (QFT) Incubation TB Test (QFT) Nil TB Test (QFT) Mitogen TB Test (QFT) Antigen TB Test (QFT) TB Positive Criteria 02/20/19 02/20/19 02/21/19 16:45 20:38 06:27 WBC RBC Hgb Hct MCV MCH MCHC RDW Plt Count MPV Sodium Potassium Chloride Carbon Dioxide Anion Gap BUN Creatinine Est GFR (CKD-EPI)AfAm Est GFR (CKD-EPI)NonAf POC Glucometer [phone] Random Glucose Calcium Total Bilirubin AST ALT Alkaline Phosphatase Total Protein Albumin RPR Titer TB (QFT) Incubation TB Test (QFT) Nil TB Test (QFT) Mitogen TB Test (QFT) Antigen TB Test (QFT) TB Positive Criteria 02/21/19 02/21/19 02/21/19 11:51 12:52 16:32 WBC RBC Hgb Hct MCV MCH MCHC RDW Plt Count MPV Sodium Potassium Chloride Carbon Dioxide Anion Gap BUN Creatinine Est GFR (CKD-EPI)AfAm Est GFR (CKD-EPI)NonAf POC Glucometer [phone] Random Glucose Calcium Total Bilirubin AST ALT Alkaline Phosphatase Total Protein Albumin RPR Titer TB (QFT) Incubation TB Test (QFT) Nil TB Test (QFT) Mitogen TB Test (QFT) Antigen TB Test (QFT) TB Positive Criteria 02/21/19 02/22/19 02/22/19 20:43 06:20 12:20 WBC RBC Hgb Hct MCV MCH MCHC RDW Plt Count MPV Sodium Potassium Chloride Carbon Dioxide Anion Gap BUN Creatinine Est GFR (CKD-EPI)AfAm Est GFR (CKD-EPI)NonAf POC Glucometer [phone] Random Glucose Calcium Total Bilirubin AST ALT Alkaline Phosphatase Total Protein Albumin RPR Titer TB (QFT) Incubation TB Test (QFT) Nil TB Test (QFT) Mitogen TB Test (QFT) Antigen TB Test (QFT) TB Positive Criteria 02/22/19 02/22/19 02/23/19 16:49 20:40 06:43 WBC RBC Hgb Hct MCV MCH MCHC RDW Plt Count MPV Sodium Potassium Chloride Carbon Dioxide Anion Gap BUN Creatinine Est GFR (CKD-EPI)AfAm Est GFR (CKD-EPI)NonAf POC Glucometer [phone] Random Glucose Calcium Total Bilirubin AST ALT Alkaline Phosphatase Total Protein Albumin RPR Titer TB (QFT) Incubation TB Test (QFT) Nil TB Test (QFT) Mitogen TB Test (QFT) Antigen TB Test (QFT) TB Positive Criteria 02/23/19 02/23/19 02/23/19 11:36 16:42 21:40 WBC RBC Hgb Hct MCV MCH MCHC RDW Plt Count MPV Sodium Potassium Chloride Carbon Dioxide Anion Gap BUN Creatinine Est GFR (CKD-EPI)AfAm Est GFR (CKD-EPI)NonAf POC Glucometer [phone] Random Glucose Calcium Total Bilirubin AST ALT Alkaline Phosphatase Total Protein Albumin RPR Titer TB (QFT) Incubation TB Test (QFT) Nil TB Test (QFT) Mitogen TB Test (QFT) Antigen TB Test (QFT) TB Positive Criteria 02/24/19 02/24/19 02/24/19 06:25 11:50 16:50 WBC RBC Hgb Hct MCV MCH MCHC RDW Plt Count MPV Sodium Potassium Chloride Carbon Dioxide Anion Gap BUN Creatinine Est GFR (CKD-EPI)AfAm Est GFR (CKD-EPI)NonAf POC Glucometer [phone] Random Glucose Calcium Total Bilirubin AST ALT Alkaline Phosphatase Total Protein Albumin RPR Titer TB (QFT) Incubation TB Test (QFT) Nil TB Test (QFT) Mitogen TB Test (QFT) Antigen TB Test (QFT) TB Positive Criteria 02/24/19 02/25/19 02/25/19 20:37 06:16 10:57 WBC RBC Hgb Hct MCV MCH MCHC RDW Plt Count MPV Sodium Potassium Chloride Carbon Dioxide Anion Gap BUN Creatinine Est GFR (CKD-EPI)AfAm Est GFR (CKD-EPI)NonAf POC Glucometer [phone] Random Glucose Calcium Total Bilirubin AST ALT Alkaline Phosphatase Total Protein Albumin RPR Titer TB (QFT) Incubation TB Test (QFT) Nil TB Test (QFT) Mitogen TB Test (QFT) Antigen TB Test (QFT) TB Positive Criteria 02/25/19 02/25/19 02/26/19 16:57 21:58 06:18 WBC RBC Hgb Hct MCV MCH MCHC RDW Plt Count MPV Sodium Potassium Chloride Carbon Dioxide Anion Gap BUN Creatinine Est GFR (CKD-EPI)AfAm Est GFR (CKD-EPI)NonAf POC Glucometer [phone] Random Glucose Calcium Total Bilirubin AST ALT Alkaline Phosphatase Total Protein Albumin RPR Titer TB (QFT) Incubation TB Test (QFT) Nil TB Test (QFT) Mitogen TB Test (QFT) Antigen TB Test (QFT) TB Positive Criteria 02/26/19 02/26/19 02/26/19 11:40 16:39 20:36 WBC RBC Hgb Hct MCV MCH MCHC RDW Plt Count MPV Sodium Potassium Chloride Carbon Dioxide Anion Gap BUN Creatinine Est GFR (CKD-EPI)AfAm Est GFR (CKD-EPI)NonAf POC Glucometer [phone] Random Glucose Calcium Total Bilirubin AST ALT Alkaline Phosphatase Total Protein Albumin RPR Titer TB (QFT) Incubation TB Test (QFT) Nil TB Test (QFT) Mitogen TB Test (QFT) Antigen TB Test (QFT) TB Positive Criteria 02/27/19 02/27/19 02/27/19 06:33 11:50 16:45 WBC RBC Hgb Hct MCV MCH MCHC RDW Plt Count MPV Sodium Potassium Chloride Carbon Dioxide Anion Gap BUN Creatinine Est GFR (CKD-EPI)AfAm Est GFR (CKD-EPI)NonAf POC Glucometer [phone] Random Glucose Calcium Total Bilirubin AST ALT Alkaline Phosphatase Total Protein Albumin RPR Titer TB (QFT) Incubation TB Test (QFT) Nil TB Test (QFT) Mitogen TB Test (QFT) Antigen TB Test (QFT) TB Positive Criteria 02/27/19 02/28/19 02/28/19 20:38 06:17 12:03 WBC RBC Hgb Hct MCV MCH MCHC RDW Plt Count MPV Sodium Potassium Chloride Carbon Dioxide Anion Gap BUN Creatinine Est GFR (CKD-EPI)AfAm Est GFR (CKD-EPI)NonAf POC Glucometer [phone] Random Glucose Calcium Total Bilirubin AST ALT Alkaline Phosphatase Total Protein Albumin RPR Titer TB (QFT) Incubation TB Test (QFT) Nil TB Test (QFT) Mitogen TB Test (QFT) Antigen TB Test (QFT) TB Positive Criteria 02/28/19 02/28/19 03/01/19 16:28 21:05 06:35 WBC RBC Hgb Hct MCV MCH MCHC RDW Plt Count MPV Sodium Potassium Chloride Carbon Dioxide Anion Gap BUN Creatinine Est GFR (CKD-EPI)AfAm Est GFR (CKD-EPI)NonAf POC Glucometer [phone] Random Glucose Calcium Total Bilirubin AST ALT Alkaline Phosphatase Total Protein Albumin RPR Titer TB (QFT) Incubation TB Test (QFT) Nil TB Test (QFT) Mitogen TB Test (QFT) Antigen TB Test (QFT) TB Positive Criteria 03/01/19 03/01/19 03/01/19 08:05 11:46 16:30 WBC RBC Hgb Hct MCV MCH MCHC RDW Plt Count MPV Sodium Potassium Chloride Carbon Dioxide Anion Gap BUN 16.4 Creatinine 1.5 H Est GFR (CKD-EPI)AfAm 58.63 Est GFR (CKD-EPI)NonAf 50.59 POC Glucometer 300 367 Random Glucose Calcium Total Bilirubin AST ALT Alkaline Phosphatase Total Protein Albumin RPR Titer TB (QFT) Incubation TB Test (QFT) Nil TB Test (QFT) Mitogen TB Test (QFT) Antigen TB Test (QFT) TB Positive Criteria 03/01/19 03/02/19 20:43 06:06 WBC RBC Hgb Hct MCV MCH MCHC RDW Plt Count MPV Sodium Potassium Chloride Carbon Dioxide Anion Gap BUN Creatinine Est GFR (CKD-EPI)AfAm Est GFR (CKD-EPI)NonAf POC Glucometer [phone] Random Glucose Calcium Total Bilirubin AST ALT Alkaline Phosphatase Total Protein Albumin RPR Titer TB (QFT) Incubation TB Test (QFT) Nil TB Test (QFT) Mitogen TB Test (QFT) Antigen TB Test (QFT) TB Positive Criteria - Treatment Discharge Condition: Discharge condition good Hospital Course: Rehabilitated safely and responded well Accepted CD aftercare referral - Medication Discharge Medications: Ambulatory Orders Aspirin 81 mg PO DAILY 02/07/19 Gabapentin [Neurontin] 600 mg PO BID 02/07/19 Insulin (LOG) Aspart [NovoLOG -] 20 units SQ TID 02/07/19 Insulin Glargine,Hum.rec.anlog [Lantus Solostar PEN (NF)] 36 units SQ HS Mycophenolate Mofetil 500 mg PO BID 02/07/19 Nifedipine [Nifedipine ER] 90 mg PO DAILY 02/07/19 Sitagliptin Phosphate [Januvia -] 100 mg PO DAILY 02/07/19 Tacrolimus 4 mg PO BID 02/07/19 Zolpidem Tartrate [Ambien] 10 mg PO HS 02/07/19 predniSONE [Deltasone -] 4 mg PO DAILY 02/07/19 Atenolol [Tenormin -] 100 mg PO DAILY 02/15/19 Hydralazine HCl 1 tab PO BID 02/15/19 Insulin Glargine,Hum.rec.anlog [Basaglar Kwikpen U-100] 35 units SCJ HS Colchicine [Colcrys] 0.6 mg PO Q8H PRN 02/28/19 Cyclobenzaprine HCl [Flexeril -] 10 mg PO TID PRN 03/01/19 Mirtazapine [Remeron -] 30 mg PO HS #30 tablet 03/01/19 - Medication-Assisted Treatment (MAT) Medication-Assisted Treatment (MAT): No - Discharge Instructions Diet, activity, other medical instructions: Diet:Low salt and no concentrated sweets diet Activity: oob ad anuradha Other medical instructions:follow up wit primary care provider Dr. Rosales on 03/05/19 at 3:30 p.m as scheduled. follow up with CD aftercare recommendations - Diagnosis (1) Alcohol use disorder Status: Chronic (2) Cocaine use disorder Status: Chronic (3) Opioid use disorder Status: Chronic (4) Hx of diabetes mellitus Status: Chronic (5) Hypertension Status: Chronic Qualifiers: Hypertension type: unspecified Qualified Code(s): I10 - Essential (primary ) hypertension (6) CKD (chronic kidney disease) Status: Chronic (7) S/P kidney transplant Status: Chronic (8) Gout attack Status: Acute Qualifiers: Gout site: foot Laterality: right (9) History of gout Status: Chronic - Follow-up Referral Minutes to complete discharge: 30 - AMA Did Patient Leave Against Medical Advice: No Additional Comments: This medical underwriter called pt[facility] pharmacy [facility] this morning and spoke to [facility] who confirmed Rx for Colchicine to "take Colchicine 0.6 mg po 6-8 hrs po daily prn" per pt's prescriber. Pt is appears to know his medications but still not sure of some . Also called and spoke to pt 's primary care provider Dr. Rosales at with pt on three way call. pt has not been following up with his medical care as confirmed by this doctor. Last saw this doctor in September of 2018 per doctor. Appointment was made with the top cager for patient to follow up with this PMD on 03/05/19 at 3:30 p.m. Pt will also make follow up appointments with his Kidney doctor after seeing his primary care provider. Dr. Rosales agreed to take care of pt 's Rx and refills and pt will not need any courtesy Rx from [facility]. However pt mentioned to his doctor's listening that he has his medications at home.
[2019-03-02] MEDS: GABAPENTIN 300 MG CAPSULE (FP) PO SCH (09:23)
[2019-03-02] MEDS: hydrALAZINE HCL 50 MG TABLET (FP) PO SCH (09:24)
[2019-03-02] MEDS: PRENATAL VITAMINS W/ FOLIC ACID TABLET (FP) PO SCH (09:24)
[2019-03-02] MEDS: COLCHICINE 0.6 MG CAP PO PRN (09:25)
[2019-03-02] MEDS: predniSONE 1 MG TABLET (FP) PO SCH (09:25)
[2019-03-02] MEDS: ASPIRIN 81 MG CHEWABLE TABLETS PO SCH (09:25)
[2019-03-02] MEDS: MYCOPHENOLATE MOFETIL 500 MG TABLET PO SCH (09:26)
[2019-03-02] MEDS: TACROLIMUS ANHYDROUS 1 MG CAPSULE PO SCH (09:27)
[2019-03-02] MEDS: NIFEdipine E.R. 90 MG TABLET (FP) PO SCH (09:29)
[2019-03-02 11:20] VITALS: BP 134/77; PULSE 94
== END 2019-03-02 10:40 | disposition home or self-care (01) | DRG 895 ==
LOC: YASAS 13:44 → Y6N 19:42 → Y5N 02-13 13:33
PROVIDERS: ADMIT Surgery; ATTEND Neuromusculoskeletal Medicine & OMM
PROC: HZ2ZZZZ Detoxification Services for Substance Abuse Treatment (ICD-10-PCS; 2019-02-07)
PROC: HZ42ZZZ Group Counseling for Substance Abuse Treatment, Cognitive-Behavioral (ICD-10-PCS; principal; 2019-02-13)
DX: F10.20 Alcohol dependence, uncomplicated (principal); F11.20 Opioid dependence, uncomplicated; F14.20 Cocaine dependence, uncomplicated; Z94.0 Kidney transplant status; F39 Unspecified mood [affective] disorder; I12.9 Hypertensive chronic kidney disease with stage 1 through stage 4 chronic kidney disease, or unspecified chronic kidney disease; E11.22 Type 2 diabetes mellitus with diabetic chronic kidney disease; N18.9 Chronic kidney disease, unspecified; Z79.4 Long term (current) use of insulin; M10.9 Gout, unspecified; K04.7 Periapical abscess without sinus; M54.9 Dorsalgia, unspecified; G89.29 Other chronic pain
CPT/HCPCS: 36415; 80048; 80053; 80197; 82565; 82962; 84520; 85027; 86480; 86593; 93005; 93010; J7517; Q0162